=== PATIENT | male | born 1955 | race Asian ===

== ENCOUNTER → 2019-07-22 08:54 | Outpatient (CLI) | payer OTHER, SELFPAY ==
[2019-07-18 15:37] VITALS: BMI 23.6
[2019-07-22 10:07] LABS: Microalbumin,Random Urine 16.8 mg/L (NO RANGE EST.); Microalbumin:Creatinine Ratio 9.1 mg/g CRE (<30 mg/g CRE)
[2019-07-22 11:04] LABS: ALB/GLOB Ratio 0.9 RATIO (0.9-2.4); AST(SGOT) 28 U/L (15-37); Alanine Aminotransfer ALT/SGPT 50 U/L (16-61); Albumin, Serum 3.9 g/dL (3.2-5.0); Alkaline Phosphatase 72 U/L (45-117); Anion Gap 4 (5-15); BUN 13 mg/dL (7-18); BUN/Creat Ratio 11.5 RATIO (10-20); Calcium,Total 9.1 mg/dL (8.5-10.1); Chloride 109 mmol/L (98-107); Cholesterol 221 mg/dL (200); Creatinine, Serum 1.13 mg/dL (0.70-1.30); EST Glomerular Filtration Rate 69 mL/min (>60); Est Glom Filt Rate - Afr Amer 84 mL/min (>60); Globulin 4.3 g/dL (2.2-4.2); Glucose 115 mg/dL (74-106); High Density Lipoprotein 59 mg/dL; Potassium 4.1 mmol/L (3.5-5.1); Protein, Total 8.2 g/dL (6.4-8.2); Sodium Level 139 mmol/L (136-145); Triglycerides 113 mg/dL; Very Low Density Lipoprotein 23 mg/dL (5-40)
== END ==
PROVIDERS: PCP Family Medicine; Referring Provider Family Medicine; Visit Provider Family Medicine
DX: E11.9 Type 2 diabetes mellitus without complications (principal)
CPT/HCPCS: 36415; 80053; 80061; 82043; 82570

== ENCOUNTER → 2020-07-24 15:19 | Outpatient (CLI) | payer OTHER, SELFPAY ==
[2020-07-24 16:54] LABS: ALB/GLOB Ratio 0.9 RATIO (0.9-2.4); AST(SGOT) 30 U/L (15-37); Alanine Aminotransfer ALT/SGPT 48 U/L (16-61); Albumin, Serum 3.8 g/dL (3.2-5.0); Alkaline Phosphatase 93 U/L (45-117); Anion Gap 4 (5-15); BUN 21 mg/dL (7-18); BUN/Creat Ratio 16.4 RATIO (10-20); Calcium,Total 8.9 mg/dL (8.5-10.1); Chloride 104 mmol/L (98-107); Cholesterol 227 mg/dL (200); Creatinine, Serum 1.28 mg/dL (0.70-1.30); EST Glomerular Filtration Rate 60 mL/min (>60); Est Glom Filt Rate - Afr Amer 72 mL/min (>60); Globulin 4.1 g/dL (2.2-4.2); Glucose 203 mg/dL (74-106); High Density Lipoprotein 50 mg/dL; Potassium 4.3 mmol/L (3.5-5.1); Protein, Total 7.9 g/dL (6.4-8.2); Sodium Level 138 mmol/L (136-145); Triglycerides 396 mg/dL; Very Low Density Lipoprotein 79 mg/dL (5-40)
[2020-07-24 16:58] LABS: Hemoglobin A1c 7.3 % (3.8-5.6)
== END ==
PROVIDERS: PCP Family Medicine; Referring Provider Family Medicine; Visit Provider Family Medicine
DX: I10 Essential (primary) hypertension (principal); E11.9 Type 2 diabetes mellitus without complications
CPT/HCPCS: 36415; 80053; 80061; 83036

== ENCOUNTER → 2020-10-30 14:08 | Outpatient (CLI) | payer OTHER, SELFPAY ==
[2020-10-30 13:49] VITALS: BMI 23.6
[2020-10-30 15:16] LABS: Hemoglobin A1c 6.9 % (3.8-5.6)
== END ==
PROVIDERS: PCP Family Medicine; Referring Provider Family Medicine; Visit Provider Family Medicine
DX: E11.9 Type 2 diabetes mellitus without complications (principal)
CPT/HCPCS: 36415; 83036

== ENCOUNTER → 2021-10-15 | Outpatient (CLI) | payer OTHER, SELFPAY ==
[2021-10-15 15:36] LABS: AST(SGOT) 24 U/L (15-37); Alanine Aminotransfer ALT/SGPT 45 U/L (16-61); Albumin, Serum 3.9 g/dL (3.2-5.0); Alkaline Phosphatase 72 U/L (45-117); Anion Gap 8 (5-15); BUN 17 mg/dL (7-18); Calcium,Total 9.2 mg/dL (8.5-10.1); Chloride 101 mmol/L (98-107); Creatinine, Serum 1.55 mg/dL (0.70-1.30); EST Glomerular Filtration Rate 48 mL/min (>60); Est Glom Filt Rate - Afr Amer 58 mL/min (>60); Glucose 211 mg/dL (74-106); Protein, Total 7.9 g/dL (6.4-8.2); Sodium Level 134 mmol/L (136-145)
[2021-10-15 16:06] LABS: Microalbumin,Random Urine 24.4 mg/L (NO RANGE EST.); Microalbumin:Creatinine Ratio 9.1 mg/g CRE (<30 mg/g CRE)
== END | disposition home or self-care (01) ==
LOC: BIMLAB 14:00
PROVIDERS: PCP Family Medicine; Referring Provider Family Medicine; Visit Provider Family Medicine
DX: E11.9 Type 2 diabetes mellitus without complications (principal)
CPT/HCPCS: 36415; 80053; 82043; 82570

== ENCOUNTER → 2021-11-28 | Outpatient (CLI) | payer MEDICARE, SELFPAY ==
[2021-11-28 12:45] LABS: BUN 16 mg/dL (7-18); BUN/Creat Ratio 13.7 RATIO (10-20); Calcium,Total 9.4 mg/dL (8.5-10.1); Chloride 103 mmol/L (98-107); Creatinine, Serum 1.17 mg/dL (0.70-1.30); EST Glomerular Filtration Rate 66 mL/min (>60); Est Glom Filt Rate - Afr Amer 80 mL/min (>60); Glucose 144 mg/dL (74-106); Phosphorus 3.1 mg/dL (2.5-4.9); Potassium 4.4 mmol/L (3.5-5.1); Sodium Level 137 mmol/L (136-145)
== END | disposition home or self-care (01) ==
PROVIDERS: PCP Family Medicine; Referring Provider Family Medicine; Visit Provider Family Medicine
DX: I10 Essential (primary) hypertension (principal); E11.9 Type 2 diabetes mellitus without complications
CPT/HCPCS: 36415; 80069

== ENCOUNTER → 2023-02-02 | Outpatient (CLI) | payer MEDICARE, SELFPAY ==
[2023-02-02 12:54] LABS: ALB/GLOB Ratio 1.1 RATIO (0.9-2.4); AST(SGOT) 34 U/L (15-37); Alanine Aminotransfer ALT/SGPT 58 U/L (16-61); Albumin, Serum 4.1 g/dL (3.2-5.0); Alkaline Phosphatase 77 U/L (45-117); Anion Gap 8 (5-15); BUN 17 mg/dL (7-18); BUN/Creat Ratio 15.5 RATIO (10-20); Calcium,Total 9.5 mg/dL (8.5-10.1); Chloride 104 mmol/L (98-107); Cholesterol 212 mg/dL (200); EST Glomerular Filtration Rate 71 mL/min (>60); Est Glom Filt Rate - Afr Amer 86 mL/min (>60); Globulin 3.7 g/dL (2.2-4.2); Glucose 118 mg/dL (74-106); High Density Lipoprotein 48 mg/dL; Potassium 4.6 mmol/L (3.5-5.1); Protein, Total 7.8 g/dL (6.4-8.2); Sodium Level 138 mmol/L (136-145); Triglycerides 302 mg/dL; Very Low Density Lipoprotein 60 mg/dL (5-40)
== END | disposition home or self-care (01) ==
LOC: BIMLAB 11:16
PROVIDERS: PCP Family Medicine; Referring Provider Family Medicine; Visit Provider Family Medicine
DX: E11.9 Type 2 diabetes mellitus without complications (principal)
CPT/HCPCS: 36415; 80053; 80061

== ENCOUNTER → 2024-02-22 | Outpatient (CLI) | payer MEDICARE, SELFPAY ==
[2024-02-22 16:48] LABS: ALB/GLOB Ratio 0.9 RATIO (0.9-2.4); AST(SGOT) 27 U/L (15-37); Alanine Aminotransfer ALT/SGPT 52 U/L (16-61); Albumin, Serum 3.8 g/dL (3.2-5.0); Alkaline Phosphatase 86 U/L (45-117); Anion Gap 12 (5-15); BUN 25 mg/dL (7-18); BUN/Creat Ratio 19.2 RATIO (10-20); Calcium,Total 9.2 mg/dL (8.5-10.1); Chloride 105 mmol/L (98-107); Cholesterol 168 mg/dL (200); EST Glomerular Filtration Rate 58 mL/min (>60); Est Glom Filt Rate - Afr Amer 70 mL/min (>60); Globulin 4.1 g/dL (2.2-4.2); Glucose 147 mg/dL (74-106); High Density Lipoprotein 50 mg/dL; Potassium 3.7 mmol/L (3.5-5.1); Protein, Total 7.9 g/dL (6.4-8.2); Sodium Level 140 mmol/L (136-145); Triglycerides 282 mg/dL; Very Low Density Lipoprotein 56 mg/dL (5-40)
== END | disposition home or self-care (01) ==
LOC: BIMLAB 15:45
PROVIDERS: PCP Family Medicine; Visit Provider Family Medicine
DX: I10 Essential (primary) hypertension (principal); E11.9 Type 2 diabetes mellitus without complications
CPT/HCPCS: 36415; 80053; 80061

== ENCOUNTER → 2025-01-18 | Outpatient (CLI) | payer MEDICARE, SELFPAY ==
[2025-01-18 13:52] LABS: Hematocrit 44.0 % (40-54); Hemoglobin 14.9 g/dL (13.0-16.5); Immature Granulocytes Count 0.020 X10^3/uL (0.0-0.0); Mean Corp Hgb Conc 33.9 g/dL (32-36); Mean Corpuscular Volume 90.3 fL (80-94); Mean Platelet Vol. 10.6 fl (6.2-12.0); NRBC Flagged by Analyzer 0 % (0-5); Platelet Count 184 K/mm3 (150-450); RBC Distribution Width CV 12.6 % (11.6-14.6); RBC Distribution Width SD 41.7 fl (35.1-43.9); Red Blood Count 4.87 M/mm3 (4.6-6.2); White Blood Count 6.1 K/mm3 (4.4-11.0)
[2025-01-18 15:14] LABS: AST(SGOT) 30 U/L (<=37); Alanine Aminotransfer ALT/SGPT 37 U/L (<=46); Albumin, Serum 4.5 g/dL (3.4-4.8); Alkaline Phosphatase 76 U/L (40-129); Anion Gap 16 (5-15); BUN 15 mg/dL (4-19); BUN/Creat Ratio 13.8 RATIO (10-20); Calcium,Total 9.7 mg/dL (7.6-11.0); Carbon Dioxide 23.5 mmol/L (21.0-32.0); Chloride 97 mmol/L (98-108); Cholesterol 150 mg/dL (<=200); Globulin 3.5 g/dL (2.2-4.2); Glucose 217 mg/dL (70-99); Low Density Lipoprotein Calc. 68 mg/dL; Potassium 4.1 mmol/L (3.3-5.1); Triglycerides 178 mg/dL; Very Low Density Lipoprotein 36 mg/dL (5-40); cholesterol:hdl ratio screen 3.21
== END | disposition home or self-care (01) ==
LOC: LAB 13:32
PROVIDERS: PCP Family Medicine; Referring Provider Physician Assistant; Visit Provider Physician Assistant
DX: I10 Essential (primary) hypertension (principal); E11.9 Type 2 diabetes mellitus without complications
CPT/HCPCS: 36415; 80053; 80061; 84443; 85025

== ENCOUNTER → 2025-01-23 | Outpatient (CLI) | payer MEDICARE, SELFPAY ==
--- NOTE | 2025-01-23 08:52 | EKG12_ITS ---
Test Reason : DYSPNEA Blood Pressure : */* mmHG Vent. Rate : 83 BPM Atrial Rate : 83 BPM P-R Int : 148 ms QRS Dur : 82 ms QT Int : 332 ms P-R-T Axes : 69 78 89 degrees QTcB Int : 390 ms Normal sinus rhythm RSR' or QR pattern in V1 suggests right ventricular conduction delay Nonspecific T wave abnormality Abnormal ECG Confirmed by JOLENE BULLOCK, UZIEL ([id number]), editor producer CHARLOTTE FISH ([id number]) on 01/24/2025 9:33:14 AM Referred By: Monroe Ta Confirmed By: UZIEL FERNÁNDEZ MD
== END | disposition home or self-care (01) ==
PROVIDERS: PCP Family Medicine; Referring Provider Physician Assistant; Visit Provider Physician Assistant
DX: R06.09 Other forms of dyspnea (principal); R40.20 Unspecified coma
CPT/HCPCS: 93005

== ENCOUNTER → 2025-02-14 | Outpatient (CLI) | payer MEDICARE, SELFPAY ==
--- OUTSIDE RECORDS SUMMARY | 2025-02-14 06:43 | XMS RPT_ITS | CCD ---
Author Organization [facility] Care Team Providers Care Make Up Man Name Role Phone Dr. Laci Billingsley Primary Care Provider [phone] Dr. Laci Billingsley Attending Provider [phone] Dr. Laci Billingsley Referring Provider [phone] LACI BILLINGSLEY DO Primary Care Physician PRATIBHA BULLOCK, DR BOND Attending Unavailabl e LACI BILLINGSLEY DO Primary Care Unavailable Dr. Laci Billingsley DO Primary Care Provider [phone] Dr. Laci Billingsley DO Attending Provider [phone] Dr. Laci Billingsley DO Referring Provider [phone] Reuben Duong Attending Provider Dr. Laci Billingsley DO Primary Care Provider Dr. Laci Billingsley DO Referring Provider [phone] Dr. Laci Billingsley DO Attending Provider [phone] Monroe Jennings Attending Provider [phone] Monroe Jennings Referring Provider [phone] Laci Billingsley R Primary Care Unavailable Monroe Jennings Referring Unavailable Monroe Jennings Attending Unavailable Laci Billingsley R Primary Care Unavailable Monroe Jennings Referring Unavailable Cely NAILS, Monroe Attending Unavailable Brown, Laci R Primary Care Unavailable Reuben Duong Attending Unavailable BrownLaci R Referring Unavailable Brown, Laci R Primary Care Unavailable BrownLaci R Attending Unavailable Laci Billingsley R Referring Unavailable Brown, Laci R Primary Care Unavailable Monroe Jennings Attending Unavailable Larry Billingsleylas R Referring Unavailable Brown, Laci R Primary Care Unavailable Brown, Laci R Attending Unavailable Brown, Laci R Referring Unavailable Brown, Laci R Primary Care Unavailable Brown, Laci R Attending Unavailable Brown, Laci R Primary Care Unavailable Monroe Jennings Referring Unavailable Monroe Jennings Attending Unavailable Brown, Laci R Primary Care Unavailable Brown, Laci R Attending Unavailable Brown, Laci R Referring Unavailable Monroe Jennings Referring Unavailable Alfredo Jim Attending Unavailable Brown, Laci R Primary Care Unavailable Brown, Laci R Primary Care Unavailable Brown, Laci R Attending Unavailable Brown, Laci R Referring Unavailable Medications Current Medications Medication Drug Class(es) Dates Sig (Normalized) Sig (Original) aspirin 81 mg oral tablet (3 sources) Platelet Aggregation Inhibitor, Nonsteroidal Anti-inflammatory Drug Start: 01-18-2025 take 1 tablet by mouth once daily Aspirin 81 mg tablet Active 81 mg PO daily 100 January 18, 2025 12:00am atorvastatin 10 mg oral tablet (12 sources) HMG-CoA Reductase Inhibitor Start: 02-03-2023 End: 02-22-2024 take 1 tablet by mouth once daily Atorvastatin (Lipitor) 10 mg tablet Active 10 mg PO DAILY 90 February 22, 2024 3:39pm Blood-Glucose Meter (Accu-Chek Guide Glucose Meter) misc (10 sources) Start: 07-13-2023 Blood-Glucose Meter (Accu-Chek Guide Glucose Meter) misc Active 0 .Route 1 0 July 13, 2023 12:41pm As directed to check BG 1-2 times daily for DMII Start: 07-13-2023 Blood-Glucose Meter (Accu-Chek Guide Glucose Meter) misc Active 0 .Route 1 July 13, 2023 12:41pm As directed to check BG 1-2 times daily for DMII Start: 07-13-2023 End: 07-13-2023 Blood-Glucose Meter (Accu-Ch ek Guide Glucose Meter) misc Discontinued 0 .Route 1 0 July 13, 2023 1:00am July 13, 2023 12:41pm As directed to check BG 1-2 times daily for DMII Start: 07-13-2023 End: 07-13-2023 Blood-Glucose Meter (Accu-Ch ek Guide Glucose Meter) misc Discontinued 0 .Route 1 July 13, 2023 1:00am July 13, 2023 12:41pm As directed to check BG 1-2 times daily for DMII Mzwndfme-Ypq-Gfodo-Vit K-Lyc op (One-A-Day Men's Multivitamin) 400-20-300 mcg tablet (9 sources) Start: 11-21-2024 Tltqxqcc-Tlb-Z olic-Vit K-Lycop (One-A-Day Men's Multivitamin) 400-20-300 mcg tablet Active {tbl} PO daily November 21, 2024 9:57am Start: 08-22-2024 End: 11-21-2024 Fhxexqle-Cer-Evuvz-Vit K-Lyc op (One-A-Day Men's Multivitamin) 400-20-300 mcg tablet Discontinued {tbl} PO August 22, 2024 12:00am November 21, 2024 9:57am Start: 08-22-2024 Avwciisw-Kdk-H olic-Vit K-Lycop (One-A-Day Men's Multivitamin) 400-20-300 mcg tablet Active {tbl} PO August 22, 2024 12:00am Completed/Discontinued Medications Medication Drug Class(es) Dates Sig (Normalized) Sig (Original) Blood-Glucose Meter (Blood Glucose Monitoring) kit (5 sources) Start: 07-13-2023 End: 07-13-2023 Blood-Glucose Meter (Blood Glucose Monitoring) kit Discontinued 0 .Route 1 0 July 13, 2023 1:00am July 13, 2023 11:37am As directed Start: 07-13-2023 End: 07-13-2023 Blood-Glucose Meter (Blood G lucose Monitoring) kit Discontinued 0 .Route 1 July 13, 2023 1:00am July 13, 2023 11:37am As directed cephalexin 500 mg oral capsule (5 sources) Cephalosporin Antibacterial Start: 10-19-2024 End: 10-29-2024 take 1 capsule by mouth every twelve hours Cephalexin 500 mg capsule Discontinued 500 mg PO Q12H 20 10 0 October 19, 2024 12:00am October 28, 2024 12:00am October 29, 2024 12:06am empagliflozin 25 mg oral tablet (16 sources) Sodium-Glucose Cotransporter 2 Inhibitor Start: 07-21-2023 End: 11-21-2024 take 1 tablet by mouth once daily Empagliflozin (Jardiance) 25 mg tablet Discontinued 25 mg PO DAILY 30 3 March 16, 2024 9:58am November 21, 2024 10:04am Flash Glucose Scanning [place] (Freestyle Melisa 2 [place]) misc (5 sources) Start: 07-07-2023 End: 07-13-2023 Flash Glucose Scanning [place] (Freestyle Melisa 2 [place]) misc Discontinued 0 .Route 1 0 July 07, 2023 1:00am July 13, 2023 9:18am As directed Start: 07-07-2023 End: 07-13-2023 Flash Glucose Scanning Reade r (Freestyle Melisa 2 [place]) misc Discontinued 0 .Route 1 July 07, 2023 1:00am July 13, 2023 9:18am As directed lisinopril 20 mg oral tablet (20 sources) Angiotensin Converting Enzyme Inhibitor Start: 10-30-2020 End: 01-18-2025 take 1 tablet by mouth once daily Lisinopril 20 mg tablet Discontinued 20 mg PO DAILY February 10, 2023 11:27am January 18, 2025 12:37pm Start: 10-30-2020 End: 10-30-2020 take 10 mg by mouth once daily Lisinopril 20 mg tablet Discontinued 10 mg PO DAILY October 30, 2020 2:01pm October 30, 2020 2:10pm Start: 10-30-2020 End: 10-30-2020 take 10 mg by mouth once daily Lisinopril Discontinued 10 MG PO DAILY 90 October 30, 2020 2:01pm October 30, 2020 2:10pm Start: 07-18-2019 End: 10-30-2020 take 1 tablet by mouth once daily Lisinopril 10 mg tablet Discontinued 10 mg PO DAILY July 24, 2020 4:12pm October 30, 2020 2:03pm Start: 03-17-2018 End: 07-18-2019 take 1 tablet by mouth once daily Lisinopril 20 mg tablet Discontinued 20 mg PO DAILY March 17, 2018 4:48pm July 18, 2019 4:19pm metFORMIN hydrochloride 500 mg oral tablet (20 sources) Biguanide Start: 11-21-2024 End: 01-18-2025 take 1 tablet by mouth twice daily Metformin 500 mg tablet Discontinued 500 mg PO TWICE A DAY November 21, 2024 9:56am January 18, 2025 12:38pm Start: 05-24-2024 End: 11-21-2024 Metformin 500 mg tablet Acti ve 500 mg PO .COMPLEX 270 1 November 21, 2024 12:00am 500 mg orally; two in the morning one at night Start: 02-02-2020 End: 11-21-2024 take 1 tablet by mouth twice daily Metformin 500 mg tablet extended release 24hr Discontinued 500 mg PO TWICE A DAY 180 1 March 28, 2024 10:57am November 21, 2024 9:57am Start: 02-24-2018 End: 02-02-2020 take 1 tablet by mouth once daily in the evening Metformin 500 mg tablet extended release 24hr Discontinued 500 mg PO EVERY EVENING 90 0 June 20, 2019 11:12am July 18, 2019 4:41pm pravastatin sodium 10 mg oral tablet (16 sources) HMG-CoA Reductase Inhibitor Start: 03-17-2018 End: 07-18-2019 take 1 tablet by mouth once daily Pravastatin 10 mg tablet Discontinued 10 mg PO DAILY 90 March 17, 2018 4:48pm July 18, 2019 4:19pm sildenafil 50 mg oral tablet (11 sources) Phosphodiesterase 5 Inhibitor Start: 10-28-2022 End: 11-21-2024 Sildenafil (Viagra) 50 mg tablet Discontinued 50 mg PO DAILY as needed for sexual activity 7 3 February 22, 2024 3:39pm November 21, 2024 9:57am administer 30 minutes to 4 hours before activity Problems Problem Classification Problem Date Documented Da te Episodic/Chronic Cataract (8 sources) Cataract; Translations: [Unspecified cataract] 07-18-2019 Chronic Coma; stupor; and brain damage (6 sources) Loss of consciousness; Translations: [Unspecified coma] Onset: 01-18-2025 01-18-2025 Episodic Diabetes mellitus without complication (19 sources) Diabetes mellitus; Translations: [Type 2 diabetes mellitus without complications] Onset: 01-18-2025 Chronic Essential hypertension (20 sources) Hypertensive disorder; Translations: [Essential (primary) hypertension] Onset: 01-23-2025 Chronic Comment on above: Blood pressure is un denice excellent control. Currently well contr olled Osteoarthritis (8 sources) Arthritis; Translations: [Unspecified osteoarthritis, unspecified site] 03-17-2018 Chronic Other connective tissue disease (6 sources) Biceps tendinitis; Translations: [Bicipital tendinitis, left shoulder] 07-22-2022 Episodic Other lower respiratory disease (6 sources) Dyspnea on exertion; Translations: [Other forms of dyspnea] 01-18-2025 Episodic Other lower respiratory disease (2 sources) Other forms of dyspnea; Translations: [Other forms of dyspnea] Onset: 01-31-2025 Episodic Other male genital disorders (15 sources) Male erectile dysfunction, unspecified; Translations: [Erectile dysfunction] Onset: 02-22-2024 02-02-2023 Chronic Other screening for suspected conditions (not mental disorders or infectious disease) (9 sources) Screening for malignant neoplasm of colon done; Translations: [Encounter for screening for malignant neoplasm of colon] Onset: 09-27-2023 Episodic Residual codes; unclassified (3 sources) Impaired exercise tolerance; Translations: [Other general symptoms and signs] 01-18-2025 Episodic Residual codes; unclassified (1 source) Other general symptoms and signs; Translations: [Other general symptoms and signs] Onset: 01-18-2025 Episodic Superficial injury; contusion (8 sources) Abrasion, left lower leg, initial encounter; Translations: [Abrasion of left lower leg] 10-20-2024 Episodic Results Test Name Value Interpretation Reference Range Facility Electrocardiogram reportOrde red By: Alfredo Jim on 01-24-2025 EKG study [facility] [address] [place] [address] 12 Lead EKG 01/23/25 0856 MR#: [id number] Acct: [id number] Name: LIZA BUSCH Rep #:[id number] : 1955 69 From: Alfredo Jim MD Attending Dr: JESU Ramachandran Stat us: REG CLI Ordering Dr: Monroe Ta Date: 01/23/25 Location: PSN Sex: M A Admitted: Test Reason : DYSPNEA Blood Pressure : */* mmHG Vent. Rate : 83 BPM Atrial Rate : 83 BPM P-R Int : 148 ms QRS Dur : 82 ms QT Int : 332 ms P-R-T Axes : 69 78 89 degrees QTcB Int : 390 ms Normal sinus rhythm RSR' or QR pattern in V1 suggests right ventricular conduction delay Nonspecific T wave abnormality Abnormal ECG Confirmed by ALFREDO JIM MD ([id number]), video news editor CHARLOTTE FISH ([id number]) on 01/24/2025 9:33:14 AM Referred By: Monroe Ta Confirmed By: ALFREDO JIM MD 01/24/2533 Date _ Alfredo Jim MD CC: Dr. Laci Billingsley DO; JESU Ramachandran ~ Signed [facility] Other 12 Lead EKGon 01-23-2025 12 Lead EKG [facility] [address] [place] [address] 12 Lead EKG 01/23/25 0856 MR#: [id number] Acct: [id number] Name: LIZA BUSCH Rep #: [id number] : 1955 69 From: Alfredo Jim MD Attending Dr: JESU Ramachandran Status: REG CLI Ordering Dr: Monroe Ta Date: 01/23/25 Location: PSN Sex: M A Admitted: Test Reason : DYSPNEA Blood Pressure : */* mmHG Vent. Rate : 83 BPM Atrial Rate : 83 BPM P-R Int : 148 ms QRS Dur : 82 ms QT Int : 332 ms P-R-T Axes : 69 78 89 degrees QTcB Int : 390 ms Normal sinus rhythm RSR' or QR pattern in V1 suggests right ventricular conduction delay Nonspecific T wave abnormality Abnormal ECG Confirmed by ALFREDO JIM MD ([id number]), video news editor CHARLOTTE FISH ([id number]) on 01/24/2025 9:33:14 AM Referred By: Monroe Ta Confirmed By: ALFREDO JIM MD 01/24/2533 Date Alfredo Jim MD CC: Dr. Laci Billingsley DO; JESU Ramachandran Signed Normal [facility] Absolute lymphocyte countOrd ered By: Monroe Ta on 01-18-2025 Lymphocytes Auto (Unsp spec) [#/Vol] 1.73 10*3/uL 0.83-4.51 [facility] Absolute neutrophil countOrd ered By: Monroe Ta on 01-18-2025 Neutrophils (Bld) [#/Vol] 3.5 10*3/uL 2.0-7.7 [facility] Anion gap in Serum or Plasma Ordered By: Monroe Ta on 01-18-2025 Anion gap [Moles/Vol] 16 mmol/L High 5-15 [facility] Automated lymphocyte count a s percentage of total leukocytesOrdered By: Monroe Ta on 01-18-2025 Lymphocytes/100 WBC Auto (Unsp spec) 28.4 % 19- [facility] BUN/creatinine ratioOrdered By: Monroe Ta on 01-18-2025 Urea nitrogen/Creatinine [Mass ratio] 13.8 mg/mg 10-20 [facility] Basophil percentageOrdered B y: Monroe Ta on 01-18-2025 Basophils/100 WBC (Bld) 1.0 % 0-1 [facility] Bilirubin, totalOrdered By: Monroe Ta on 01-18-2025 Bilirubin [Mass/Vol] 0.42 mg/dL 0.00-1.30 [facility] CBC W/Diff, Automatedon 01-05 Absolute Lymph 1.73 X10 3/uL Normal 0.83-4.51 [facility] Comment on above: Performed By: #### L 501.9520, L100.0100, L500.4100, L500.4050 #### [facility] [address] [place], [address] Absolute Neut 3.5 X10 3/uL Normal 2.0-7.7 [facility] Comment on above: Performed By: #### L 501.9520, L100.0100, L500.4100, L500.4050 #### [facility] [address] [place], [address] Basophils/100 WBC (Bld) 1.0 % Normal 0-1 [facility] Comment on above: Performed By: #### L 501.9520, L100.0100, L500.4100, L500.4050 #### [facility] [address] [place], [address] Eosinophils/100 WBC (Bld) 2.1 % Normal 0-5 [facility] Comment on above: Performed By: #### L 501.9520, L100.0100, L500.4100, L500.4050 #### [facility] [address] [place], [address] Erythrocyte distribution width (RBC) [Ratio] 12.6 % Normal 11.6-14.6 [facility] Comment on above: Performed By: #### L 501.9520, L100.0100, L500.4100, L500.4050 #### [facility] [address] [place], [address] Hematocrit (Bld) [Volume fraction] 44.0 % Normal 40-54 [facility] Comment on above: Performed By: #### L 501.9520, L100.0100, L500.4100, L500.4050 #### [facility] [address] [place], [address] Hemoglobin (Bld) [Mass/Vol] 14.9 g/dL Normal 13.0-16.5 [facility] Comment on above: Performed By: #### L 501.9520, L100.0100, L500.4100, L500.4050 #### [facility] [address] [place], [address] IG% 0.300 Normal 0.0-0.9 [facility] Comment on above: Result Comment: IG% - Immature Granulocytes (promyelocytes, myelocytes and metamyelocytes) > 1% indicates that a LEFT SHIFT is Present. Performed By: #### L 501.9520, L100.0100, L500.4100, L500.4050 #### [facility] [address] [place], [address] Lymphocytes/100 WBC (Bld) 28.4 % Normal 19-41 [facility] Comment on above: Performed By: #### L 501.9520, L100.0100, L500.4100, L500.4050 #### [facility] [address] [place], [address] MCH (RBC) [Entitic mass] 30.6 pg Normal 27.0-32.0 [facility] Comment on above: Performed By: #### L 501.9520, L100.0100, L500.4100, L500.4050 #### [facility] [address] [place], [address] MCHC (RBC) [Mass/Vol] 33.9 g/dL Normal 32-36 [facility] Comment on above: Performed By: #### L 501.9520, L100.0100, L500.4100, L500.4050 #### [facility] [address] [place], [address] MCV (RBC) [Entitic vol] 90.3 fL Normal 80-94 [facility] Comment on above: Performed By: #### L 501.9520, L100.0100, L500.4100, L500.4050 #### [facility] [address] [place], [address] Monocytes/100 WBC (Bld) 10.2 % High 0-10 [facility] Comment on above: Performed By: #### L 501.9520, L100.0100, L500.4100, L500.4050 #### [facility] [address] [place], [address] Neutrophils/100 WBC (Bld) 58.0 % Normal 47-70 [facility] Comment on above: Performed By: #### L 501.9520, L100.0100, L500.4100, L500.4050 #### [facility] [address] [place], [address] Nucleated RBC (Bld) [#/Vol] 0 10*3/uL Normal 0-5 [facility] Comment on above: Performed By: #### L 501.9520, L100.0100, L500.4100, L500.4050 #### [facility] [address] [place], [address] Platelet mean volume (Bld) [Entitic vol] 10.6 fL Normal 6.2-12.0 [facility] Comment on above: Performed By: #### L 501.9520, L100.0100, L500.4100, L500.4050 #### [facility] [address] [place], [address] Platelets (Bld) [#/Vol] 184 10*3/uL Normal 150-450 [facility] Comment on above: Performed By: #### L 501.9520, L100.0100, L500.4100, L500.4050 #### [facility] [address] [place], [address] RBC (Bld) [#/Vol] 4.87 10*6/uL Normal 4.6-6.2 [facility] Comment on above: Performed By: #### L 501.9520, L100.0100, L500.4100, L500.4050 #### [facility] [address] [place], [address] RDW SD 41.7 fl Normal 35.1-43.9 [facility] Comment on above: Performed By: #### L 501.9520, L100.0100, L500.4100, L500.4050 #### [facility] [address] [place], [address] WBC (Bld) [#/Vol] 6.1 10*3/uL Normal 4.4-11.0 [facility] Comment on above: Performed By: #### L 501.9520, L100.0100, L500.4100, L500.4050 #### [facility] [address], [address] Calculated very low density lipoprotein (VLDL) cholesterol measurementOrdered By: Monroe Ta on 01-18-2025 Calculated very low density lipoprotein (VLDL) cholesterol measurement 36 mg/dL 5-40 [facility] Carbon dioxide, total [Moles /volume] in Central venous bloodOrdered By: Monroe Ta on 01-18-2025 CO2 [Moles/Vol] 23.5 mmol/L 21.0-32.0 [facility] Chloride assayOrdered By: Eitan Ta on 01-18-2025 Chloride [Moles/Vol] 97 mmol/L Low 98-108 [facility] Comprehensive Metabolic Prof ilon 01-18-2025 Albumin [Mass/Vol] 4.5 g/dL Normal 3.4-4.8 [facility] Comment on above: Performed By: #### L 501.9520, L100.0100, L500.4100, L500.4050 #### [facility] [address], [address] Albumin/Globulin [Mass ratio] 1.3 {ratio} Normal 0.9-2.4 [facility] Comment on above: Performed By: #### L 501.9520, L100.0100, L500.4100, L500.4050 #### [facility] [address] [place], [address] ALK PHOS 76 U/L Normal 40-129 [facility] Comment on above: Performed By: #### L 501.9520, L100.0100, L500.4100, L500.4050 #### [facility] [address] [place], [address] ALT [Catalytic activity/Vol] 37 U/L Normal <=46 [facility] Comment on above: Performed By: #### L 501.9520, L100.0100, L500.4100, L500.4050 #### [facility] [address] [place], [address] AST [Catalytic activity/Vol] 30 U/L Normal <=37 [facility] Comment on above: Performed By: #### L 501.9520, L100.0100, L500.4100, L500.4050 #### [facility] [address] [place], [address] Bilirubin [Mass/Vol] 0.42 mg/dL Normal 0.00-1.30 [facility] Comment on above: Performed By: #### L 501.9520, L100.0100, L500.4100, L500.4050 #### [facility] [address] [place], [address] BUN/CRE 13.8 RATIO Normal 10-20 [facility] Comment on above: Performed By: #### L 501.9520, L100.0100, L500.4100, L500.4050 #### [facility] [address] [place], [address] Calcium [Mass/Vol] 9.7 mg/dL Normal 7.6-11.0 [facility] Comment on above: Performed By: #### L 501.9520, L100.0100, L500.4100, L500.4050 #### [facility] [address] [place], [address] Chloride [Moles/Vol] 97 mmol/L Low 98-108 [facility] Comment on above: Performed By: #### L 501.9520, L100.0100, L500.4100, L500.4050 #### [facility] [address] [place], [address] CO2 [Moles/Vol] 23.5 mmol/L Normal 21.0-32.0 [facility] Comment on above: Performed By: #### L 501.9520, L100.0100, L500.4100, L500.4050 #### [facility] [address] [place], [address] Creatinine [Mass/Vol] 1.07 mg/dL Normal 0.70-1.20 [facility] Comment on above: Performed By: #### L 501.9520, L100.0100, L500.4100, L500.4050 #### [facility] [address] [place], [address] GAP 16 High 5-15 [facility] Comment on above: Performed By: #### L 501.9520, L100.0100, L500.4100, L500.4050 #### [facility] [address] [place], [address] GFR/1.73 sq M.predicted among non-blacks MDRD (S/P/Bld) [Vol rate/Area] 75 mL/min/{1.73_m2} Normal >60 [facility] Comment on above: Result Comment: mL/m in/1.73m2 CKD-EPI Creatinine Equation (2020) Performed By: #### L 501.9520, L100.0100, L500.4100, L500.4050 #### [facility] [address] [place], [address] Globulin (S) [Mass/Vol] 3.5 g/dL Normal 2.2-4.2 [facility] Comment on above: Performed By: #### L 501.9520, L100.0100, L500.4100, L500.4050 #### [facility] [address] [place], [address] Glucose [Mass/Vol] 217 mg/dL High 70-99 [facility] Comment on above: Performed By: #### L 501.9520, L100.0100, L500.4100, L500.4050 #### [facility] [address] [place], [address] Potassium [Moles/Vol] 4.1 mmol/L Normal 3.3-5.1 [facility] Comment on above: Performed By: #### L 501.9520, L100.0100, L500.4100, L500.4050 #### [facility] [address] [place], [address] Sodium [Moles/Vol] 136 mmol/L Normal 133-145 [facility] Comment on above: Performed By: #### L 501.9520, L100.0100, L500.4100, L500.4050 #### [facility] [address] [place], [address] T PROT 7.9 g/dL Normal 5.9-8.4 [facility] Comment on above: Performed By: #### L 501.9520, L100.0100, L500.4100, L500.4050 #### [facility] [address] [place], [address] Urea nitrogen [Mass/Vol] 15 mg/dL Normal 4-19 [facility] Comment on above: Performed By: #### L 501.9520, L100.0100, L500.4100, L500.4050 #### [facility] [address] [place], [address] Eosinophil percentageOrdered By: Monroe Ta on 01-18-2025 Eosinophils/100 WBC (Bld) 2.1 % 0-5 [facility] Erythrocyte distribution wid th ratioOrdered By: Monroe Ta on 01-18-2025 Erythrocyte distribution width (RBC) [Ratio] 12.6 % 11.6-14.6 [facility] Erythrocyte distribution wid th standard deviationOrdered By: Monroe Ta on 01-18-2025 Erythrocyte distribution width (RBC) [Ratio] 41.7 fl 35.1-43.9 [facility] Glomerular filtration rate ( GFR) estimation/1.73 sq m using serum, plasma, or whole bOrdered By: Monroe Ta on 01-18-2025 GFR/1.73 sq M.predicted among non-blacks MDRD (S/P/Bld) [Vol rate/Area] 75 mL/min/{1.73_m2} >60 [facility] Comment on above: mL/min/1.73m2 CKD-EP I Creatinine Equation (2020) Hematocrit Auto (Bld) [Volum e fraction]Ordered By: Monroe Ta on 01-18-2025 Hematocrit (Bld) [Volume fraction] 44.0 % 40-54 [facility] Hemoglobin measurementOrdere d By: Monroe Ta on 01-18-2025 Hemoglobin (Bld) [Mass/Vol] 14.9 g/dL 13.0-16.5 [facility] Immature granulocytes/100 WB C Auto (Bld)Ordered By: Monroe Ta on 01-18-2025 Immature granulocytes/100 WBC (Bld) 0.300 % 0.0-0.9 [facility] Comment on above: IG% - Immature Granu locytes (promyelocytes, myelocytes and metamyelocytes) > 1% indicates that a LEFT SHIFT is Present. Internal Medicine Office Vis melissa 01-18-2025 Internal Medicine Office Visit [facility] [address] [place] [address] [place] [address] OFFICE VISIT Date of Service: 01/18/25 MR#: [id number] Acct: [id number] Name: LIZA BUSCH Rep #: [id number] : 1955 Provider: JESU Ramachandran Age/Sex: 69/M Location: [facility] [place] Status: Signed Intake Vital Signs 11/21/24 09:57 01/18/25 12:40 Height 5 ft 10 in 5 ft 10 in Weight: 169 lb 168 lb BMI 24.2 24.0 BP 116/72 124/82 H Blood Pressure Location Lt brachial Lt brachial Position Sitting Sitting Respiration 14 18 Pulse 88 88 Pulse Source Monitor Monitor Temp 97.5 F L 97.7 F L Temp Source Temporal Temporal Pulse Oximetry (%) 99 98 Oxygen Delivery Method room air room air Intake Visit Reasons: Passed out 01/15, Diabetic, fell on hip (cont.) Office Manager Required: No Accompanied by: Daughter Is patient in pain?: No Allergies No Known Allergies Allergy (Verified 01/18/25 12:32) Medications ???Medication ???Instructions ???Recorded ???Confirmed ???Type blood-glucose meter (Accu-Chek #1 ea 07/13/23 01/18/25 Rx Guide Glucose Meter) lancets (Accu-Chek Softclix #100 ea 07/13/23 01/18/25 Rx Lancets) atorvastatin 10 mg tablet (Lipitor) 10 mg PO DAILY #90 tabs 4 01/18/25 Rx metformin 500 mg tablet 500 mg PO .COMPLEX #270 tabs 11/2101/18/25 Rx hmvgyvvl-pdmrdncx-oe lic acid 400 tab PO QDAY 11/21/24 01/18/25 Hist ory mcg-vit K 20 mcg-lycop 300 mcg tablet (One-A-Day Men's Multivitamin) aspirin 81 mg tablet 81 mg PO QDAY #100 tabs 01/18/25 0 01/18/25 Rx blood sugar diagnostic (Accu-Chek #100 ea 01/18/25 01/18/25 Rx Guide test strips) Have you fallen in the past year?: Yes (01/15/25-R hip feels better.) Nurse's Note: Pt has had loss of appetite for awhile, he fell on 01/15/25 he states he feels very fatigued, he passed out after going white on wednesday and his BG was 206 fasting. This mornings sugars are 166. He needs new test strips as they may be , he states bp's have been running good does not keep track, he has never brought in machine to be compared to in office. He has good readings in office and at home. Daughter wondering if more tests are needed due to her not coming in awhile to the appointments w/ him. [facility] Medical History (Updated 01/18/25 @ 21:12 by JESU Munguia) Hypertension Diabetes Arthritis Family History Mother Hypertension Social History Smoking Status: Former smoker alcohol intake: current alcohol intake frequency: a few times a month Alcohol type: beer substance use type: does not use what type of physical activity do you participate in: bicycling HPI HPI Details: LIZA BUSCH, is a 69 M who presents to the office today at the request of his family members. On Wednesday he was outside mowing and had just watered the plants when he started to feel light headed. He did sit down in a chair where he proceeded to have a syncopal episode falling to the ground. They said he was pale and sort of out of it and that it took him probably 15-20 minutes until he could really comprehend and was more himself. He states that since then he has felt ok at the same time still has some fatigue / feels tired. Daughter states that they think they see him get more winded than normal at the same time he feels like he is breathing easy and is not short of breath. Wehn asked though he states that since the episode maybe he would get a little winded like with stairs or walking. He had a little pain in the right hip that has pretty much resolve he states (maybe like 5% still there). He does periodically check his BP which they state always looks pretty good He does check his sugars and they states that normally it is in the mid 100s or lower. HE denies any chest pain / pressures, dizziness, shortness of breath, diaphoresis. No currently taking ASA minor ETOH intake ROS Const Constitutional: Positive for fatigue; No body ache, chills, excessive sweating, fever(s), frequent falls, headache(s), snoring, weakness, sleep problems or change in appetite Eyes Eyes: No blurry vision, change in vision, eye pain or Light sensitivity ENT ENT: Positive for other; No abnormal hearing, ear or mastoid pain, tinnitus, nasal congestion, headache(s), neck pain or sore throat Resp Respiratory: No cough, shortness of breath, snoring or wheezing Cardio Cardiology: No chest pain at rest, chest pain with exertion, excessive sweating, shortness of breath, dyspnea on exertion, lightheadedness, orthopnea or palpitations Gastro GI: No abdominal pain, change in bowel habits, constipation, cramping, diarrhea, nausea/dyspepsia or vomiting Genitourinary Male: No burning urinatio (more content not included)... Normal [facility] LDL calc ser/plasOrdered By: Monroe Ta on 01-18-2025 Cholesterol in LDL [Mass/Vol] 68 mg/dL [facility] Comment on above: Beackotiam=532-879 m g/dL & Higher Bgir=349 mg/dL or greaterFriedwald Equation for LDL-C Laboratory - Chemistry and C hemistry - challengeOrdered By: Monroe Ta on 01-18-2025 AST [Catalytic activity/Vol] 30 U/L <38 [facility] Lipid Profileon 01-18-2025 CHOL:HDL 3.21 Normal [facility] Comment on above: Performed By: #### L 501.9520, L100.0100, L500.4100, L500.4050 #### [facility] [address] [place], [place], [id number] Cholesterol [Mass/Vol] 150 mg/dL Normal <=200 [facility] Comment on above: Result Comment: Chol esterol level, Desirable <200 mg/dL Borderline high cholesterol 200-239 mg/dL High cholesterol >=240 mg/dL Recommendations of the NCEP Adult Treatment Panel for the following risk-cutoff thresholds for the [place] population. Performed By: #### L 501.9520, L100.0100, L500.4100, L500.4050 #### [facility] [address] [place], [place], [id number] Cholesterol in HDL [Mass/Vol] 47 mg/dL Normal [facility] Comment on above: Result Comment: Harika onal Cholesterol Education Program (NCEP) guidelines: <40 mg/dL: Low HDL-cholesterol (major risk factor for CHD) >= 60 mg/dL: High HDL-cholesterol (negative risk factor for CHD) HDL-cholesterol is affected by a number of factors, e.g. smoking, exercise, hormones, sex and age. Performed By: #### L 501.9520, L100.0100, L500.4100, L500.4050 #### [facility] [address] [place], [address] Cholesterol in LDL [Mass/Vol] 68 mg/dL Normal [facility] Comment on above: Result Comment: Bord xhssgr=062-484 mg/dL Higher Czgm=136 mg/dL or greater Friedwald Equation for LDL-C Performed By: #### L 501.9520, L100.0100, L500.4100, L500.4050 #### [facility] [address] [place], [address] Cholesterol in VLDL [Mass/Vol] 36 mg/dL Normal 5-40 [facility] Comment on above: Performed By: #### L 501.9520, L100.0100, L500.4100, L500.4050 #### [facility] [address] [place], [address] Triglyceride [Mass/Vol] 178 mg/dL Normal [facility] Comment on above: Result Comment: The drugs N-Acetylcysteine and Metamizole may falsely depress this assay. Normal range: <150 mg/dL Borderline High: 150-199 mg/dL High: 200-499 mg/dL Very High: >500 mg/dL Performed By: #### L 501.9520, L100.0100, L500.4100, L500.4050 #### [facility] [address] [place], [address] MCV (mean corpuscular volume ) determinationOrdered By: Monroe Ta on 01-18-2025 MCV (RBC) [Entitic vol] 90.3 fL 80-94 [facility] Mean corpuscular hemoglobin (MCH) determinationOrdered By: Monroe Ta on 01-18-2025 MCH (RBC) [Entitic mass] 30.6 pg 27.0-32.0 [facility] Mean corpuscular hemoglobin concentration (MCHC) determinationOrdered By: Monroe Ta on 01-18-2025 MCHC (RBC) [Mass/Vol] 33.9 g/dL 32-36 [facility] Mean platelet volume determi nationOrdered By: Monroe Ta on 01-18-2025 Platelet mean volume (Bld) [Entitic vol] 10.6 fL 6.2-12.0 [facility] Monocyte percentageOrdered B y: Monroe Ta on 01-18-2025 Monocytes/100 WBC (Bld) 10.2 % High 0-10 [facility] Neutrophil percentageOrdered By: Monroe Ta on 01-18-2025 Neutrophils/100 WBC (Bld) 58.0 % 47-70 [facility] Nucleated red blood cell per centageOrdered By: Monroe Ta on 01-18-2025 Nucleated RBC/100 WBC (Bld) [Ratio] 0 % 0-5 [facility] Platelet countOrdered By: Eitan ttmarlen Ta on 01-18-2025 Platelets (Bld) [#/Vol] 184 10*3/uL 150-450 [facility] Potassium measurement (mass/ volume)Ordered By: Monroe Ta on 01-18-2025 Potassium (Unsp spec) [Mass/Vol] 4.1 mmol/L 3.3-5.1 [facility] RBC Auto (Bld) [#/Vol]Ordere d By: Monroe Ta on 01-18-2025 RBC (Bld) [#/Vol] 4.87 10*6/uL 4.6-6.2 [facility] Screening total cholesterol/ high density lipoprotein (HDL) cholesterol ratioOrdered By: Monroe Ta on 01-18-2025 Cholesterol.total/Choles terol in HDL [Mass ratio] 3.21 {ratio} [facility] Serum creatinine measurement (mass/volume)Ordered By: Monroe Ta on 01-18-2025 Creatinine [Mass/Vol] 1.07 mg/dL 0.70-1.20 [facility] Serum globulin measurementOr dered By: Monroe Ta on 01-18-2025 Globulin (S) [Mass/Vol] 3.5 g/dL 2.2-4.2 [facility] Serum glucose measurement (m ass/volume)Ordered By: Monroe Ta on 01-18-2025 Glucose [Mass/Vol] 217 mg/dL High 70-99 [facility] Serum or plasma alanine conner otransferase (ALT) measurementOrdered By: Monroe Ta on 01-18-2025 ALT [Catalytic activity/Vol] 37 U/L <47 [facility] Serum or plasma albumin kristina urement (mass/volume)Ordered By: Monroe Ta on 01-18-2025 Albumin [Mass/Vol] 4.5 g/dL 3.4-4.8 [facility] Serum or plasma albumin/glob ulin mass ratioOrdered By: Monroe Ta on 01-18-2025 Albumin/Globulin [Mass ratio] 1.3 {ratio} 0.9-2.4 [facility] Serum or plasma alkaline paula sphatase measurementOrdered By: Monroe Ta on 01-18-2025 ALP [Catalytic activity/Vol] 76 U/L 40-129 [facility] Serum or plasma calcium kristina urement (mass/volume)Ordered By: Monroe Ta on 01-18-2025 Calcium [Mass/Vol] 9.7 mg/dL 7.6-11.0 [facility] Serum or plasma cholesterol in HDL measurement (mass/volume)Ordered By: Monroe Ta on 01-18-2025 Cholesterol in HDL [Mass/Vol] 47 mg/dL >40 [facility] Comment on above: National Cholesterol Education Program (NCEP) guidelines:<40 mg/dL: Low HDL-cholesterol (major risk factor for CHD)>= 60 mg/dL: High HDL-cholesterol (negative risk factor for CHD)HDL-cholesterol is affected by a number of factors, e.g. smoking, exercise, hormones, sex and age. Serum or plasma cholesterol measurement (mass/volume)Ordered By: Monroe Ta on 01-18-2025 Cholesterol [Mass/Vol] 150 mg/dL <201 [facility] Comment on above: Cholesterol level, D esirable <200 mg/dLBorderline high cholesterol 200-239 mg/dLHigh cholesterol >=240 mg/dLRecommendations of the NCEP Adult Treatment Panel for the following risk-cutoff thresholds for the [place] population. Serum or plasma urea nitroge n measurement (mass/volume)Ordered By: Monroe Ta on 01-18-2025 Urea nitrogen [Mass/Vol] 15 mg/dL 4-19 [facility] Sodium levelOrdered By: Jonathan Ta on 01-18-2025 Sodium [Moles/Vol] 136 mmol/L 133-145 [facility] TSH DL <= 0.005 mIU/L QnOrde red By: Monroe Ta on 01-18-2025 TSH Qn 1.120 uIU/mL 0.300-4.200 [facility] Thyroid Stim Hormone (TSH)on 01-18-2025 TSH 1.120 uIU/mL Normal 0.300-4.200 [facility] Comment on above: Performed By: #### L 501.9520, L100.0100, L500.4100, L500.4050 #### [facility] [address] [place], [address] Total proteinOrdered By: Lorenzo Ta on 01-18-2025 Protein [Mass/Vol] 7.9 g/dL 5.9-8.4 [facility] Triglycerides measurementOrd ered By: Monroe Ta on 01-18-2025 Triglyceride [Mass/Vol] 178 mg/dL <199 [facility] Comment on above: The drugs N-Acetylcy steine and Metamizole may falsely depress this assay. Normal range: <150 mg/dLBorderline High: 150-199 mg/dLHigh: 200-499 mg/dLVery High: >500 mg/dL White blood cell (WBC) count Ordered By: Monroe Ta on 01-18-2025 WBC (Bld) [#/Vol] 6.1 10*3/uL 4.4-11.0 [facility] Internal Medicine Office Vis iton 11-21-2024 Internal Medicine Office Visit [facility] [address] [place] [address] [address] [place], [place] [address] OFFICE VISIT Date of Service: 11/21/24 MR#: [id number] Acct: [id number] Name: LIZA BUSCH Rep #: [id number] : 1955 Provider: Dr. Laci montanez DO Age/Sex: 69/M Location: [facility] [place] Status: Signed Intake Vital Signs 08/22/24 09:22 11/21/24 09:57 Height 5 ft 10 in 5 ft 10 in Weight: 170 lb 169 lb BMI 24.3 24.2 BP 118/74 116/72 Blood Pressure Location Lt brachial Lt brachial Position Sitting Sitting Respiration 18 14 Pulse 91 88 Pulse Source Monitor Monitor Temp 97.5 F L 97.5 F L Temp Source Temporal Temporal Pulse Oximetry (%) 99 99 Oxygen Delivery Method room air room air Intake Visit Reasons: 3 M FU Chief Complaint: Recheck on his diabetes. Office Manager Required: No Is patient in pain?: No Allergies No Known Allergies Allergy (Verified 11/21/24 09:48) Medications ???Medication ???Instructions ???Recorded ???Confirmed ???Type lisinopril 20 mg tablet 20 mg PO DAILY #90 tabs 02/10/23 0 11/21/24 Rx blood sugar diagnostic (Accu-Chek #100 ea 07/13/23 11/21/24 Rx Guide test strips) blood-glucose meter (Accu-Chek #1 ea 07/13/23 11/21/24 Rx Guide Glucose Meter) lancets (Accu-Chek Softclix #100 ea 07/13/23 11/21/24 Rx Lancets) atorvastatin 10 mg tablet (Lipitor) 10 mg PO DAILY #90 tabs 2 4 11/21/24 Rx metformin 500 mg tablet 500 mg PO .COMPLEX #270 tabs 11/2111/21/24 Rx metformin 500 mg tablet 500 mg PO BID 11/21/24 History bonffwse-opvqqabw-ua lic acid 400 tab PO QDAY 11/21/24 11/21/24 Hist ory mcg-vit K 20 mcg-lycop 300 mcg tablet (One-A-Day Men's Multivitamin) Have you fallen in the past year?: No PFSH Medical History (Updated 11/21/24 @ 10:[address] Laci Billingsley DO) Hypertension Diabetes Arthritis Family History Mother Hypertension Social History Smoking Status: Former smoker alcohol intake: current alcohol intake frequency: a few times a month Alcohol type: beer substance use type: does not use what type of physical activity do you participate in: bicycling HPI HPI Chief Complaint: Recheck on his diabetes. Details: LIZA BUSCH, is a 69 M who presents to the office today for a follow-up on his diabetes. He says he feels very well but because of the cost of the Jardiance he has not been taking that. He has started a new habit of taking a 10 to 15-minute walk after each meal and I encouraged him that that is a very good thing to do. He really has no new complaints. ROS Const Constitutional: No body ache, chills, excessive sweating, fatigue, fever(s), frequent falls, headache(s), snoring, weakness, sleep problems or change in appetite Eyes Eyes: No blurry vision, change in vision, eye pain or Light sensitivity ENT ENT: No abnormal hearing, ear or mastoid pain, tinnitus, nasal congestion, headache(s), neck pain or sore throat Resp Respiratory: No cough, shortness of breath, snoring or wheezing Cardio Cardiology: No chest pain at rest, chest pain with exertion, excessive sweating, shortness of breath, dyspnea on exertion, lightheadedness, orthopnea or palpitations Gastro GI: No abdominal pain, change in bowel habits, constipation, cramping, diarrhea, nausea/dyspepsia or vomiting Genitourinary Male: No burning urination, painful urination, urinary incontinence or urinary frequency Musc Musculoskeletal: No abnormal gait, joint pain, back pain, limited range of motion, neck pain or numbness Skin Skin: No dry skin, redness, lesions, itchy eyes, rash or wounds Neuro Neurology: No abnormal gait, abnormal hearing, weakness, frequent falls, headache(s), memory loss or numbness Psych Psychiatric: No anxiety, No change in appetite, No depression, No memory loss and No Thoughts of harming yourself/Others Endo Endocrine: No cold intolerance, excessive sweating, fatigue, flushing, heat intolerance, increased thirst/drinking or increased hunger Aller/Imm Allergy/Immunologic: No itchy eyes, seasonal allergy symptoms, hives or wheezing Jesse/Lymp Hematologic/Lymphati c: No easy bleeding, easy bruising, enlarged lymph nodes or other Exam Const General: cooperative and healthy appearing Nutritional Appearance: average body habitus [facility] Head: normal to inspection Ears: hearing grossly normal bilaterally Nose: external nose normal Teeth and gingiva: dentition normal Eyes General: appearance normal, both eyes and all related structures Visual Do: normal visual do by confrontation Other: Mild bilateral cataract formation. Neck Neck: no lymphadenopathy Neck mass: No Resp Effort Inspection: normal respirat (more content not included)... Normal [facility] - Hematology and Cell countsOrdered By: Laci Billingsley on 11-21-2024 HbA1c (Bld) [Mass fraction] 8.3 % High 4.2-6.3 [facility] Urgent Care Visit Reporton 0 10-19-2024 Urgent Care Visit Report [facility] [address], [address] [place] [address] OFFICE VISIT Date of Service: 10/19/24 MR#: [id number] Acct: [id number] Name: LIZA BUSCH Rep #: [id number] : 1955 Provider: JESU Yip Age/Sex: 69/M Location: [facility] [place] Status: Signed Intake Vital Signs 08/22/24 09:22 10/19/24 10:19 Height 5 ft 10 in Weight: 170 lb 169 lb BMI 24.3 BP 118/74 142/86 H Blood Pressure Location Lt brachial Lt brachial Position Sitting Sitting Respiration 18 16 Pulse 91 84 Pulse Source Monitor Monitor Temp 97.5 F L 98.6 F Temp Source Temporal Oral Pulse Oximetry (%) 99 98 Oxygen Delivery Method room air room air Intake Visit Reasons: CONCERN FOR INFECTION ON R LEG Chief Complaint: leg pain Is patient in pain?: Yes (left greenwood) Pain scale (1-10): 1 Allergies No Known Allergies Allergy (Verified 10/19/24 10:18) Medications ???Medication ???Instructions ???Recorded ???Confirmed ???Type lisinopril 20 mg tablet 20 mg PO DAILY #90 tabs 02/10/23 0 10/19/24 Rx blood sugar diagnostic (Accu-Chek #100 ea 07/13/23 10/19/24 Rx Guide test strips) blood-glucose meter (Accu-Chek #1 ea 07/13/23 10/19/24 Rx Guide Glucose Meter) lancets (Accu-Chek Softclix #100 ea 07/13/23 10/19/24 Rx Lancets) atorvastatin 10 mg tablet (Lipitor) 10 mg PO DAILY #90 tabs 4 10/19/24 Rx sildenafil 50 mg tablet (Viagra) 50 mg PO DAILY PRN sexual activity 02/22/24 10/19/24 Rx #7 tabs empagliflozin 25 mg tablet 25 mg PO DAILY #30 tabs 03/16/24 0 10/19/24 Rx (Jardiance) metformin 500 mg tablet,extended 500 mg PO BID #180 tabs 03/28/24 0 10/19/24 Rx release 24hr (osmotic) metformin 500 mg tablet 1,000 mg (2 x 500 mg) PO BID #360 05/24/24 10/19/24 Rx tabs rrreqblo-jkwvbreu-uq lic acid 400 tab PO 08/22/24 10/19/24 History mcg-vit K 20 mcg-lycop 300 mcg tablet (One-A-Day Men's Multivitamin) cephalexin 500 mg capsule 500 mg PO Q12H 10 days #20 caps 10/19/24 Rx Have you fallen in the past year?: No Nurse's Note: left greenwood injury open area x 1 week tx- antibiotic cream qd PFSH Medical History (Updated 10/20/24 @ 06:46 by JESU Lopez) Hypertension Diabetes Arthritis Family History Mother Hypertension Social History Smoking Status: Former smoker alcohol intake: current alcohol intake frequency: a few times a month Alcohol type: beer substance use type: does not use what type of physical activity do you participate in: bicycling HPI HPI Chief Complaint: leg pain Details: LIZA BUSCH, is a 69 M who presents to the office today for initial evaluation of a left greenwood abrasion. Patient states that this occurred approximately 1 week ago and states being concerned as he is diabetic. He reports that the area has become somewhat more red than it was initially. He denies numbness, tingling or loss of range of motion. No fever, chills or sweats. No nausea, vomiting or diarrhea. No other associated symptoms or alleviating/aggravat ing factors. ROS Const Constitutional: No other (6 system ROS completed with pertinent findings in the HPI otherwise normal.) Exam Const General: cooperative and healthy appearing Resp Effort Inspection: normal respiratory effort Cardio Rate: regular rate Skin Other: Linear abrasion left lower leg mid greenwood measuring approximately 4 cm in length with appropriate granulation tissue and very minimal surrounding erythema. No streaking, fluctuance or drainage. Neuro General: patient alert Psych Appearance: grossly normal Mental Status: mental status grossly normal Coding Level of Care Code Off vis,new,level 3 Diagnoses Abrasion of skin of left lower leg S80.812A Assessment and Plan Assessment and Plan (1) Abrasion of skin of left lower leg: Status: Acute Medications: New cephalexin 500 mg PO Q12H 20 caps 0RF 10 days Plan Keflex as prescribed today. Encouraged to get plenty of rest, drink lots of clear liquids, and use Tylenol or Ibuprofen (unless contraindicated) for comfort. Patient also educated on other symptomatic management techniques. To be seen in 7-10 days if no improvement; sooner if worsening of symptoms. Patient advised of wound techniques as well as potential red flags and when appropriate to report to the ED. Patient verbalized understanding and agreement with all the above. Clinical Quality Measures Falls Risk Screening/Assistive Devices Have you fallen in the past year?: No 10/20/24 0647 Date Reuben Calabrese Signature: Date (more content not included)... Normal [facility] Internal Medicine Office Vis melissa 08-22-2024 Internal Medicine Office Visit [facility] [address] [place] [address] [place] [address] OFFICE VISIT Date of Service: 08/22/24 MR#: [id number] Acct: [id number] Name: LIZA BUSCH Rep #: [id number] : 1955 Provider: Dr. Laci montanez, DO Age/Sex: 69/M Location: [facility] [place] Status: Signed Intake Vital Signs 05/24/24 09:28 08/22/24 09:22 Height 5 ft 10 in 5 ft 10 in Weight: 166 lb 8 oz 170 lb BMI 23.8 24.3 BP 122/60 H 118/74 Blood Pressure Location Lt brachial Lt brachial Position Sitting Sitting Respiration 16 18 Pulse 62 91 Pulse Source Monitor Monitor Temp 97.7 F L 97.5 F L Temp Source Temporal Temporal Pulse Oximetry (%) 97 99 Oxygen Delivery Method room air room air Intake Visit Reasons: 3 M FU Chief Complaint: 3 M FU Allergies No Known Allergies Allergy (Verified 05/24/24 09:23) Medications ???Medication ???Instructions ???Recorded ???Confirmed ???Type lisinopril 20 mg tablet 20 mg PO DAILY #90 tabs 02/10/23 0 08/22/24 Rx blood sugar diagnostic (Accu-Chek #100 ea 07/13/23 08/22/24 Rx Guide test strips) blood-glucose meter (Accu-Chek #1 ea 07/13/23 08/22/24 Rx Guide Glucose Meter) lancets (Accu-Chek Softclix #100 ea 07/13/23 08/22/24 Rx Lancets) atorvastatin 10 mg tablet (Lipitor) 10 mg PO DAILY #90 tabs 4 08/22/24 Rx sildenafil 50 mg tablet (Viagra) 50 mg PO DAILY PRN sexual activity 02/22/24 08/22/24 Rx #7 tabs empagliflozin 25 mg tablet 25 mg PO DAILY #30 tabs 03/16/24 0 08/22/24 Rx (Jardiance) metformin 500 mg tablet,extended 500 mg PO BID #180 tabs 03/28/24 0 08/22/24 Rx release 24hr (osmotic) metformin 500 mg tablet 1,000 mg (2 x 500 mg) PO BID #360 05/24/24 08/22/24 Rx tabs kikxrggl-aivuklih-zj lic acid 400 tab PO 08/22/24 08/22/24 History mcg-vit K 20 mcg-lycop 300 mcg tablet (One-A-Day Men's Multivitamin) Have you fallen in the past year?: No PFSH Medical History Hypertension Diabetes Arthritis Family History Mother Hypertension Social History Smoking Status: Former smoker alcohol intake: current alcohol intake frequency: a few times a month Alcohol type: beer substance use type: does not use what type of physical activity do you participate in: bicycling HPI HPI Chief Complaint: 3 M FU Details: LIZA BUSCH, is a 69 M who presents to the office today for a 3-month diabetic follow-up. He voices no complaints. At his last visit we increased his metformin because his A1c was 7.9. ROS Const Constitutional: No body ache, chills, excessive sweating, fatigue, fever(s), frequent falls, headache(s), snoring, weight change, sleep problems, abnormal sleep pattern or change in appetite Eyes Eyes: No blurry vision, change in vision, eye pain or Light sensitivity ENT ENT: No abnormal hearing, ear or mastoid pain, tinnitus, nasal congestion, headache(s), neck pain or sore throat Resp Respiratory: No cough, shortness of breath, snoring or wheezing Cardio Cardiology: No chest pain at rest, chest pain with exertion, excessive sweating, shortness of breath, dyspnea on exertion, lightheadedness, orthopnea or palpitations Gastro GI: No abdominal pain, change in bowel habits, constipation, cramping, diarrhea, nausea/dyspepsia or vomiting Genitourinary Male: No burning urination, painful urination, urinary incontinence or urinary frequency Musc Musculoskeletal: No abnormal gait, joint pain, back pain, limited range of motion, neck pain, numbness or tingling Skin Skin: No dry skin, redness, lesions, itchy eyes, rash or wounds Neuro Neurology: No abnormal gait, abnormal hearing, frequent falls, headache(s), memory loss, numbness or tingling Psych Psychiatric: No abnormal sleep pattern, No anxiety, No change in appetite, No irritability, No memory loss and No Thoughts of harming yourself/Others Endo Endocrine: No cold intolerance, excessive sweating, fatigue, flushing, heat intolerance, increased thirst/drinking, increased hunger or weight change Aller/Imm Allergy/Immunologic: No itchy eyes, seasonal allergy symptoms, hives or wheezing Jesse/Lymp Hematologic/Lymphati c: No easy bleeding, easy bruising, enlarged lymph nodes or other Exam Const General: cooperative and healthy appearing Nutritional Appearance: average body habitus [facility] Head: normal to inspection Ears: hearing grossly normal bilaterally Nose: external nose normal Eyes General: appearance normal, both eyes and all related structures Visual Do: normal visual do by confrontation Other: Mild bilateral cataract formation. Neck Neck: no lymphadenopathy Neck mass: No Resp E (more content not included)... Normal [facility] - Hematology and Cell countsOrdered By: Laci Billingsley on 08-22-2024 HbA1c (Bld) [Mass fraction] 7.7 % High 4.2-6.3 [facility] Internal Medicine Office Vis iton 05-24-2024 Internal Medicine Office Visit [facility] [address] [place] [address] [place] [address] OFFICE VISIT Date of Service: 05/24/24 MR#: [id number] Acct: [id number] Name: LIZA BUSCH Rep #: [id number] : 1955 Provider: Dr. Laci Ibarra Br own, DO Age/Sex: 68/M Location: [facility] [place] Status: Signed Intake Vital Signs 02/22/24 15:26 05/24/24 09:28 Height 5 ft 10 in 5 ft 10 in Weight: 167 lb 166 lb 8 oz BMI 23.9 23.8 BP 122/82 H 122/60 H Blood Pressure Location Lt brachial Lt brachial Position Sitting Sitting Respiration 14 16 Pulse 56 L 62 Pulse Source Monitor Monitor Temp 97.7 F L 97.7 F L Temp Source Temporal Temporal Pulse Oximetry (%) 97 97 Oxygen Delivery Method room air room air Intake Visit Reasons: 3 M FU Chief Complaint: Diabetes recheck. Office Manager Required: No Accompanied by: Self Is patient in pain?: No Allergies No Known Allergies Allergy (Verified 05/24/24 09:23) Medications ???Medication ???Instructions ???Recorded ???Confirmed ???Type lisinopril 20 mg tablet 20 mg PO DAILY #90 tabs 02/10/23 05/24/24 Rx blood sugar diagnostic (Accu-Chek #100 ea 07/13/23 05/24/24 Rx Guide test strips) blood-glucose meter (Accu-Chek #1 ea 07/13/23 05/24/24 Rx Guide Glucose Meter) lancets (Accu-Chek Softclix #100 ea 07/13/23 05/24/24 Rx Lancets) atorvastatin 10 mg tablet (Lipitor) 10 mg PO DAILY #90 tabs 02/22/24 05/24/24 Rx sildenafil 50 mg tablet (Viagra) 50 mg PO DAILY PRN sexual activity 02/22/24 05/24/24 Rx #7 tabs empagliflozin 25 mg tablet 25 mg PO DAILY #30 tabs 03/16/24 05/24/24 Rx (Jardiance) metformin 500 mg tablet,extended 500 mg PO BID #180 tabs 03/28/24 05/24/24 Rx release 24hr (osmotic) metformin 500 mg tablet 1,000 mg (2 x 500 mg) PO BID #360 05/24/24 05/24/24 Rx tabs Have you fallen in the past year?: No PFSH Medical History Hypertension Diabetes Arthritis Family History Mother Hypertension Social History Smoking Status: Former smoker alcohol intake: current alcohol intake frequency: a few times a month Alcohol type: beer substance use type: does not use what type of physical activity do you participate in: bicycling HPI HPI Chief Complaint: Diabetes recheck. Details: LIZA BUSCH, is a 68 M who presents to the office today for follow-up on his diabetes. He stopped the Farxiga 3 months ago because the cost was going to be about $500 a month and he simply could not afford it. He says he really does not feel any different on the medicine or off the medicine. ROS Const Constitutional: No body ache, chills, excessive sweating, fatigue, fever(s), frequent falls, headache(s), snoring, weakness or change in appetite Eyes Eyes: No blurry vision, change in vision, eye pain or Light sensitivity ENT ENT: No abnormal hearing, ear or mastoid pain, tinnitus, nasal congestion, headache(s), neck pain or sore throat Resp Respiratory: No cough, shortness of breath, snoring or wheezing Cardio Cardiology: No chest pain at rest, chest pain with exertion, excessive sweating, dyspnea on exertion, lightheadedness, orthopnea or palpitations Gastro GI: No abdominal pain, change in bowel habits, constipation, cramping, diarrhea, nausea/dyspepsia or vomiting Genitourinary Male: No burning urination, painful urination, urinary incontinence or urinary frequency Musc Musculoskeletal: No abnormal gait, joint pain, back pain, limited range of motion, muscle weakness, neck pain or numbness Skin Skin: No dry skin, redness, lesions, itchy eyes, rash or wounds Neuro Neurology: No abnormal gait, abnormal hearing, weakness, frequent falls, headache(s), memory loss or numbness Psych Psychiatric: No anxiety, No change in appetite, No depression, No memory loss and No Thoughts of harming yourself/Others Endo Endocrine: No cold intolerance, excessive sweating, fatigue, flushing, heat intolerance, increased thirst/drinking or increased hunger Aller/Imm Allergy/Immunologic: No itchy eyes, seasonal allergy symptoms, hives or wheezing Jesse/Lymp Hematologic/Lymphati c: No easy bleeding or easy bruising Exam Const General: cooperative and healthy appearing Nutritional Appearance: average body habitus [facility] Head: normal to inspection Ears: hearing grossly normal bilaterally Nose: external nose normal Eyes General: appearance normal, both eyes and all related structures Visual Do: normal visual do by confrontation Neck Neck: no lymphadenopathy Neck mass: No Resp Effort Inspection: normal respiratory effort Auscultation: Bilateral: Clear to Auscultation Cardio Rate: regular rate Rhythm: regular rh (more content not included)... Normal [facility] Metabolic Prof robin 02-22-2024 Albumin [Mass/Vol] 3.8 g/dL Normal 3.2-5.0 [facility] Comment on above: Performed By: #### L 500.4100, L500.4050 #### [facility] [address] [place], [address] Albumin/Globulin [Mass ratio] 0.9 {ratio} Normal 0.9-2.4 [facility] Comment on above: Performed By: #### L 500.4100, L500.4050 #### [facility] [address] [place], [address] ALK P 86 U/L Normal 45-117 [facility] Comment on above: Performed By: #### L 500.4100, [id number] #### [facility] [address] [place], [address] ALT [Catalytic activity/Vol] 52 U/L Normal 16-61 [facility] Comment on above: Performed By: #### L 500.4100, [id number] #### [facility] [address] [place], [address] AST [Catalytic activity/Vol] 27 U/L Normal 15-37 [facility] Comment on above: Performed By: #### L 500.4100, L500.4050 #### [facility] [address] [place], [address] Bilirubin [Mass/Vol] 0.30 mg/dL Normal 0.20-1.00 [facility] Comment on above: Result Comment: For patients on eltrombopag therapy, use of Dimension Viola TBIL is not recommended. Performed By: #### L 500.4100, L500.4050 #### [facility] [address] [place], [address] BUN/CRE 19.2 RATIO Normal 10-20 [facility] Comment on above: Performed By: #### L 500.4100, [id number] #### [facility] [address] [place], [address] CA,Total 9.2 mg/dL Normal 8.5-10.1 [facility] Comment on above: Performed By: #### L 500.4100, [id number] #### [facility] [address] [place], [address] Chloride [Moles/Vol] 105 mmol/L Normal 98-107 [facility] Comment on above: Performed By: #### L 500.4100, L500.4050 #### [facility] [address] [place], [address] CO2 [Moles/Vol] 23.0 mmol/L Normal 21.0-32.0 [facility] Comment on above: Performed By: #### L 500.4100, [id number] #### [facility] [address] [place], [address] Creatinine [Mass/Vol] 1.30 mg/dL Normal 0.70-1.30 [facility] Comment on above: Result Comment: The validity of the calculated GFR GFRAA in patients over 70 years has not been determined. Clinical correlation is essential. Performed By: #### L 500.4100, L500.4050 #### [facility] [address] [place], [address] EST GFR - AA 70 mL/min Normal >60 [facility] Comment on above: Result Comment: Afri can Mauritian GFR Calc Performed By: #### L 500.4100, [id number] #### [facility] [address] [place], [address] GAP 12 Normal 5-15 [facility] Comment on above: Performed By: #### L 500.4100, [id number] #### [facility] [address] [place], [address] GFR/1.73 sq M.predicted among non-blacks MDRD (S/P/Bld) [Vol rate/Area] 58 mL/min/{1.73_m2} Low >60 [facility] Comment on above: Result Comment: Non- GFR Calc Performed By: #### L 500.4100, L500.4050 #### [facility] [address] [place], [address] Globulin (S) [Mass/Vol] 4.1 g/dL Normal 2.2-4.2 [facility] Comment on above: Performed By: #### L 500.4100, [id number] #### [facility] [address] [place], [address] Glucose [Mass/Vol] 147 mg/dL High 74-106 [facility] Comment on above: Result Comment: Fast ing Glucose result greater than or equal to 126 mg/dL suggests DIABETES MELLITUS per A.D.A. criteria. Performed By: #### L 500.4100, L500.4050 #### [facility] [address] [place], [address] Potassium [Moles/Vol] 3.7 mmol/L Normal 3.5-5.1 [facility] Comment on above: Performed By: #### L 500.4100, [id number] #### [facility] [address] [place], [address] Sodium [Moles/Vol] 140 mmol/L Normal 136-145 [facility] Comment on above: Performed By: #### L 500.4100, [id number] #### [facility] [address] [place], [address] T PROT 7.9 g/dL Normal 6.4-8.2 [facility] Comment on above: Performed By: #### L 500.4100, L500.4050 #### [facility] [address] [place], [address] Urea nitrogen [Mass/Vol] 25 mg/dL High 7-18 [facility] Comment on above: Performed By: #### L 500.4100, [id number] #### [facility] [address] [place], [address] Internal Medicine Office Vis iton 02-22-2024 Internal Medicine Office Visit [facility] [address] [place] [address] [place] [address] OFFICE VISIT Date of Service: 02/22/24 MR#: [id number] Acct: [id number] Name: LIZA BUSCH Rep #: [id number] : 1955 Provider: Dr. Laci montanez DO Age/Sex: 68/M Location: [facility] [place] Status: Signed Intake Vital Signs 10/06/23 10:29 02/22/24 15:26 Height 5 ft 10 in 5 ft 10 in Weight: 166 lb 4 oz 167 lb BMI 23.8 23.9 BP 122/82 H 122/82 H Blood Pressure Location Lt brachial Lt brachial Position Sitting Sitting Respiration 16 14 Pulse 71 56 L Pulse Source Monitor Monitor Temp 97.7 F L 97.7 F L Temp Source Temporal Temporal Pulse Oximetry (%) 99 97 Oxygen Delivery Method room air room air Intake Visit Reasons: FU Chief Complaint: Diabetes recheck. Office Manager Required: No Is patient in pain?: No Allergies No Known Allergies Allergy (Verified 02/22/24 15:25) Medications ???Medication ???Instructions ???Recorded ???Confirmed ???Type lisinopril 20 mg tablet 20 mg PO DAILY #90 tabs 02/10/23 02/22/24 Rx blood sugar diagnostic (Accu-Chek #100 ea 07/13/23 02/22/24 Rx Guide test strips) blood-glucose meter (Accu-Chek #1 ea 07/13/23 02/22/24 Rx Guide Glucose Meter) lancets (Accu-Chek Softclix #100 ea 07/13/23 02/22/24 Rx Lancets) metformin 500 mg tablet,extended 500 mg PO BID #180 tabs 10/06/23 02/22/24 Rx release 24hr (osmotic) empagliflozin 25 mg tablet 25 mg PO DAILY #30 tabs 11/16/23 02/22/24 Rx (Jardiance) atorvastatin 10 mg tablet (Lipitor) 10 mg PO DAILY #90 tabs 02/22/24 02/22/24 Rx sildenafil 50 mg tablet (Viagra) 50 mg PO DAILY PRN sexual activity 02/22/24 02/22/24 Rx #7 tabs Have you fallen in the past year?: No Nurse's Note: Needs sildenafil and lipitor refilled. [facility] Medical History Hypertension Diabetes Arthritis Family History Mother Hypertension Social History Smoking Status: Former smoker alcohol intake: current alcohol intake frequency: a few times a month Alcohol type: beer substance use type: does not use what type of physical activity do you participate in: bicycling HPI HPI Chief Complaint: Diabetes recheck. Details: LIZA BUSCH, is a 68 M who presents to the office today for a recheck on his diabetes. He brings his glucose monitor and his readings have been consistently excellent with a high only being about 130 in the low being only about 102 so he is got a very narrow control. He feels very well and really has no complaints. He looks quite a bit younger than his age. Exam Const General: cooperative and healthy appearing Nutritional Appearance: average body habitus [facility] Head: normal to inspection Ears: hearing grossly normal bilaterally Nose: external nose normal Eyes General: appearance normal, both eyes and all related structures Visual Do: normal visual do by confrontation Neck Neck: no lymphadenopathy Neck mass: No Resp Effort Inspection: normal respiratory effort Auscultation: Bilateral: Clear to Auscultation Cardio Rate: regular rate Rhythm: regular rhythm Musc Musculoskeletal: No joint tenderness or decreased range of motion Skin General: no rashes or lesions noted Neuro General: normal sensation to monofilament Gait: normal gait Extrem General: no clubbing, cyanosis or edema Psych Affect: normal affect Judgment: judgment good Results POC A1C POC A1C 7.4 % Last Edit by Inga Miles MA on 02/22/24 15:29 Coding Level of Care Code Off vis,est,level 3 Diagnoses Essential hypertension I10 Hypertension type: essential hypertension Type 2 diabetes mellitus without complication, without long-term current use of insulin E11.9 Diabetes mellitus type: type 2 Diabetes mellitus detention insulin use: without ferry terminal agent use Diabetes mellitus complication status: without complication Erectile dysfunction, unspecified erectile dysfunction type N52.9 Erectile dysfunction type: unspecified Assessment and Plan Assessment and Plan (1) Hypertension: Status: Chronic Qualifiers: Hypertension type: essential hypertension Qualified Code(s): I10 - Essential (primary) hypertension Comment: Blood pressure is under excellent control. (2) Diabetes: Status: Chronic Qualifiers: Diabetes mellitus type: type 2 Diabetes mellitus ferry terminal agent insulin use: without detention use Diabetes mellitus complication status: without complication Qualified Code(s): E11.9 - Type 2 diabetes mellitus without complications Plan: His hemoglobin A1c is 7.4 showing very good diabetic control. (3) Erectile dysfunction: Status: Acute Qualifiers: Erectile dysf (more content not included)... Normal [facility] Lipid Profileon 02-22-2024 Cholesterol [Mass/Vol] 168 mg/dL Normal 200 [facility] Comment on above: Result Comment: <200 mg/dL Desirable 200-240 mg/dL Borderline >240 mg/dL High Risk Performed By: #### L 500.4100, L500.4050 #### [facility] [address] [place], [address] Cholesterol in HDL [Mass/Vol] 50 mg/dL Normal [facility] Comment on above: Result Comment: The drugs N-Acetylcysteine and Metamizole may falsely depress this assay. Reference Range HDL <40 mg/dL Low HDL Cholesterol HDL >or= 60 mg/dL High HDL Cholesterol Performed By: #### L 500.4100, L500.4050 #### [facility] [address] [place], [address] Cholesterol in LDL [Mass/Vol] 62 mg/dL Normal 0-130 [facility] Comment on above: Performed By: #### L 500.4100, L500.4050 #### [facility] [address] [place], [address] Cholesterol in VLDL [Mass/Vol] 56 mg/dL High 5-40 [facility] Comment on above: Performed By: #### L 500.4100, L500.4050 #### [facility] [address] [place], [place], [address] Triglyceride [Mass/Vol] 282 mg/dL High [facility] Comment on above: Result Comment: The drugs N-Acetylcysteine and Metamizole may falsely depress this assay. Serum Triglycerides Reference Interval Normal <150 mg/dL Borderline high 150 - 199 mg/dL High 200 - 499 mg/dL Very High > or = 500 mg/dL Performed By: #### L 500.4100, L500.4050 #### [facility] [address] [facility] [place], [place], [address] Basophil percentageOrdered B y: Laci Brown on 02-02-2023 Bilirubin [Mass/Vol] 0.50 mg/dL 0.20-1.00 [facility] Comment on above: For patients on eltr ombopag therapy, use of Dimension Viola TBIL is not recommended. Chloride [Moles/Vol] 104 mmol/L 98-107 [facility] Cholesterol [Mass/Vol] 212 mg/dL <200 [facility] Comment on above: <200 mg/dL Desirable 200-240 mg/dL Borderline >240 mg/dL High Risk Glucose [Mass/Vol] 118 mg/dL 74-106 [facility] Comment on above: Fasting Glucose resu lt from 100 to 125 mg/dL suggests IMPAIRED HOMEOSTASIS per A.D.A. criteria. Potassium [Moles/Vol] 4.6 mmol/L 3.5-5.1 [facility] Protein [Mass/Vol] 7.8 g/dL 6.4-8.2 [facility] Sodium [Moles/Vol] 138 mmol/L 136-145 [facility] Triglyceride [Mass/Vol] 302 mg/dL <199 [facility] Comment on above: The drugs N-Acetylcy steine and Metamizole may falsely depress this assay.Serum Triglycerides Reference Interval Normal <150 mg/dL Borderline high 150 - 199 mg/dL High 200 - 499 mg/dL Very High > or = 500 mg/dL Laboratory - Chemistry and C hemistry - challengeOrdered By: Laci Billingsley on 02-02-2023 ALP [Catalytic activity/Vol] 77 U/L 45-117 [facility] ALT [Catalytic activity/Vol] 58 U/L 16-61 [facility] CO2 [Moles/Vol] 26.0 mmol/L 21.0-32.0 [facility] Globulin (S) [Mass/Vol] 3.7 g/dL 2.2-4.2 [facility] Urea nitrogen/Creatinine [Mass ratio] 15.5 mg/mg 10-20 [facility] - Hematology and Cell countson 02-02-2023 HbA1c (Bld) [Mass fraction] 7.7 % 4.2-6.3 [facility] No Panel InformationOrdered By: Laci Billingsley on 02-02-2023 Estimated GFR (MDRD) Amer 86 mL/min >60 [facility] Comment on above: GFR Calc Estimated GFR (MDRD) Non-Af Amer 71 mL/min >60 [facility] Comment on above: Non- GFR Calc Serum or plasma albumin kristina urement (mass/volume)Ordered By: Laci Billingsley on 02-02-2023 Albumin [Mass/Vol] 4.1 g/dL 3.2-5.0 [facility] Serum or plasma albumin/glob ulin mass ratioOrdered By: Laci Billingsley on 02-02-2023 Albumin/Globulin [Mass ratio] 1.1 {ratio} 0.9-2.4 [facility] Serum or plasma calcium kristina urement (mass/volume)Ordered By: Laci Billingsley on 02-02-2023 Calcium [Mass/Vol] 9.5 mg/dL 8.5-10.1 [facility] Serum or plasma cholesterol in HDL measurement (mass/volume)Ordered By: Laci Billingsley on 02-02-2023 Cholesterol in HDL [Mass/Vol] 48 mg/dL >40 [facility] Comment on above: The drugs N-Acetylcy steine and Metamizole may falsely depress this assay. Reference Range HDL <40 mg/dL Low HDL Cholesterol HDL >or= 60 mg/dL High HDL Cholesterol Serum or plasma cholesterol in VLDL measurement (mass/volume)Ordered By: Laci Billingsley on 02-02-2023 Cholesterol in VLDL [Mass/Vol] 60 mg/dL 5-40 [facility] Serum or plasma creatinine m easurement (mass/volume)Ordered By: Laci Billingslye on 02-02-2023 Creatinine [Mass/Vol] 1.10 mg/dL 0.70-1.30 [facility] Comment on above: The validity of the calculated GFR & GFRAA in patients over 70 years has not been determined. Clinical correlation is essential. Serum or plasma low density lipoprotein (LDL) cholesterol measurement (mass/volume)Ordered By: Laci Billingsley on 02-02-2023 Cholesterol in LDL [Mass/Vol] 104 mg/dL 0-130 [facility] Serum or plasma urea nitroge n measurement (mass/volume)Ordered By: Laci Billingsley on 02-02-2023 Urea nitrogen [Mass/Vol] 17 mg/dL 7-18 [facility] Thin prep Papanicolaou smear with manual screeningOrdered By: Laci Billingsley on 02-02-2023 Thin prep Papanicolaou smear with manual screening 34 U/L 15-37 [facility] Thin prep Papanicolaou smear with manual screening 8 5-15 [facility] - Hematology and Cell countson 10-28-2022 HbA1c (Bld) [Mass fraction] 7.4 % 4.2-6.3 [facility] Basophil percentageon 2021 Basophil percentage 3.1 mg/dL 2.5-4.9 [facility] Work Phone: Chloride [Moles/Vol] 103 mmol/L 98-107 [facility] Work Phone: Glucose [Mass/Vol] 144 mg/dL 74-106 [facility] Work Phone: Comment on above: Fasting Glucose resu lt greater than or equal to 126 mg/dL suggests DIABETES MELLITUS per A.D.A. criteria. Potassium [Moles/Vol] 4.4 mmol/L 3.5-5.1 [facility] Work Phone: Comment on above: Slight Hemolysis, Re sult may be falsely increased. Sodium [Moles/Vol] 137 mmol/L 136-145 [facility] Work Phone: Laboratory - Chemistry and C hemistry - challengeon 11-28-2021 CO2 [Moles/Vol] 28.0 mmol/L 21.0-32.0 [facility] Work Phone: Urea nitrogen/Creatinine [Mass ratio] 13.7 mg/mg 10-20 [facility] Work Phone: No Panel Informationon 11-28 Estimated GFR (MDRD) Amer 80 mL/min >60 [facility] Work Phone: Comment on above: GFR Calc Estimated GFR (MDRD) Non-Af Amer 66 mL/min >60 [facility] Work Phone: Comment on above: Non- GFR Calc Serum or plasma albumin kristina urement (mass/volume)on 11-28-2021 Albumin [Mass/Vol] 4.0 g/dL 3.2-5.0 [facility] Work Phone: Serum or plasma calcium kristina urement (mass/volume)on 11-28-2021 Calcium [Mass/Vol] 9.4 mg/dL 8.5-10.1 [facility] Work Phone: Serum or plasma creatinine m easurement (mass/volume)on 11-28-2021 Creatinine [Mass/Vol] 1.17 mg/dL 0.70-1.30 [facility] Work Phone: Comment on above: The validity of the calculated GFR & GFRAA in patients over 70 years has not been determined. Clinical correlation is essential. Serum or plasma urea nitroge n measurement (mass/volume)on 11-28-2021 Urea nitrogen [Mass/Vol] 16 mg/dL 7-18 [facility] Work Phone: Basophil percentageon 2021 Bilirubin [Mass/Vol] 0.50 mg/dL 0.20-1.00 [facility] Work Phone: Comment on above: For patients on eltr ombopag therapy, use of Dimension Viola TBIL is not recommended. Chloride [Moles/Vol] 101 mmol/L 98-107 [facility] Work Phone: Glucose [Mass/Vol] 211 mg/dL 74-106 [facility] Work Phone: Comment on above: Glucose result great er than or equal to 200 mg/dLsuggests DIABETES MELLITUS per A.D.A. criteria. Potassium [Moles/Vol] 4.0 mmol/L 3.5-5.1 [facility] Work Phone: Comment on above: Slight Hemolysis, Re sult may be falsely increased. Protein [Mass/Vol] 7.9 g/dL 6.4-8.2 [facility] Work Phone: Sodium [Moles/Vol] 134 mmol/L 136-145 [facility] Work Phone: Laboratory - Chemistry and C hemistry - challengeon 10-15-2021 ALP [Catalytic activity/Vol] 72 U/L 45-117 [facility] Work Phone: ALT [Catalytic activity/Vol] 45 U/L 16-61 [facility] Work Phone: CO2 [Moles/Vol] 25.0 mmol/L 21.0-32.0 [facility] Work Phone: Globulin (S) [Mass/Vol] 4.0 g/dL 2.2-4.2 [facility] Work Phone: Urea nitrogen/Creatinine [Mass ratio] 11.0 mg/mg 10-20 [facility] Work Phone: Laboratory - Hematology and Cell countson 10-15-2021 HbA1c (Bld) [Mass fraction] 8.0 % 4.2-6.3 [facility] Work Phone: No Panel Informationon 10-15 Estimated GFR (MDRD) Amer 58 mL/min >60 [facility] Work Phone: Comment on above: GFR Calc Estimated GFR (MDRD) Non-Af Amer 48 mL/min >60 [facility] Work Phone: Comment on above: Non- GFR Calc Urine Microalbumin/Creatinine Ratio 9.1 mg/g CRE <30 [facility] Work Phone: Serum or plasma albumin kristina urement (mass/volume)on 10-15-2021 Albumin [Mass/Vol] 3.9 g/dL 3.2-5.0 [facility] Work Phone: Serum or plasma albumin/glob ulin mass ratioon 10-15-2021 Albumin/Globulin [Mass ratio] 1.0 {ratio} 0.9-2.4 [facility] Work Phone: Serum or plasma calcium kristina urement (mass/volume)on 10-15-2021 Calcium [Mass/Vol] 9.2 mg/dL 8.5-10.1 [facility] Work Phone: Serum or plasma creatinine m easurement (mass/volume)on 10-15-2021 Creatinine [Mass/Vol] 1.55 mg/dL 0.70-1.30 [facility] Work Phone: Comment on above: The validity of the calculated GFR & GFRAA in patients over 70 years has not been determined. Clinical correlation is essential. Serum or plasma urea nitroge n measurement (mass/volume)on 10-15-2021 Urea nitrogen [Mass/Vol] 17 mg/dL 7-18 [facility] Work Phone: Thin prep Papanicolaou smear with manual screeningon 10-15-2021 Thin prep Papanicolaou smear with manual screening 24 U/L 15-37 [facility] Work Phone: Comment on above: Slight Hemolysis, Re sult may be falsely increased. Thin prep Papanicolaou smear with manual screening 8 5-15 [facility] Work Phone: Thin prep Papanicolaou smear with manual screening 24.4 mg/L NO RANGE EST. [facility] Work Phone: Urine creatinine measurement (mass/volume)on 10-15-2021 Creatinine (U) [Mass/Vol] 267.00 mg/dL NO RANGE EST. [facility] Work Phone: Vital Signs Date Time Vital Sign Value Performing Clinician Facility 01-18-2025 12:40-0400 Body height 177.[address] Laci Billingsley DO Work Phone: [facility] 01-18-2025 12:40-0400 Body mass index (BMI) [Ratio] 24 kg/m2 Dr. Laci Billingsley DO Work Phone: [facility] 01-18-2025 12:40-0400 Body temperature 97.7 [degF] Dr. Laci Billingsley DO Work Phone: [facility] 01-18-2025 12:40-0400 Body weight 76.[address] Laci Billingsley DO Work Phone: [facility] 01-18-2025 12:40-0400 Diastolic blood pressure 82 mm[Hg] Dr. Laci Billingsley DO Work Phone: [facility] 01-18-2025 12:40-0400 Heart rate 88 /min Dr. Lcai Billingsley DO Work Phone: [facility] 01-18-2025 12:40-0400 Respiratory rate 18 /min Dr. Laci Billingsley DO Work Phone: [facility] 01-18-2025 12:40-0400 SaO2% (BldA) [Mass fraction] 98 % Dr. Laci Billingsley DO Work Phone: [facility] 01-18-2025 12:40-0400 Systolic blood pressure 124 mm[Hg] Dr. Laci Billingsley DO Work Phone: [facility] 11-21-2024 09:57-0400 Body height 177.[address] Laci Billingsley DO Work Phone: [facility] 11-21-2024 09:57-0400 Body mass index (BMI) [Ratio] 24.2 kg/m2 Dr. Laci Billingsley DO Work Phone: [facility] 11-21-2024 09:57-0400 Body temperature 97.5 [degF] Dr. Laci Billingsley DO Work Phone: [facility] 11-21-2024 09:57-0400 Body weight 76.[address] Laci Billingsley DO Work Phone: [facility] 11-21-2024 09:57-0400 Diastolic blood pressure 72 mm[Hg] Dr. Laci Billingsley DO Work Phone: [facility] 11-21-2024 09:57-0400 Heart rate 88 /min Dr. Laci Billingsley DO Work Phone: [facility] 11-21-2024 09:57-0400 Respiratory rate 14 /min Dr. Laci Billingsley DO Work Phone: [facility] 11-21-2024 09:57-0400 SaO2% (BldA) [Mass fraction] 99 % Dr. Laci Billingsley DO Work Phone: [facility] 11-21-2024 09:57-0400 Systolic blood pressure 116 mm[Hg] Dr. Laci Billingsley DO Work Phone: [facility] 10-19-2024 10:19-0400 Body temperature 98.6 [degF] Dr. Laci Billingsley DO Work Phone: [facility] 10-19-2024 10:19-0400 Body weight 76.[address] Laci Billingsley DO Work Phone: [facility] 10-19-2024 10:19-0400 Diastolic blood pressure 86 mm[Hg] Dr. Laci Billingsley DO Work Phone: [facility] 10-19-2024 10:19-0400 Heart rate 84 /min Dr. Laci Billingsley DO Work Phone: [facility] 10-19-2024 10:19-0400 Respiratory rate 16 /min Dr. Laci Billingsley DO Work Phone: [facility] 10-19-2024 10:19-0400 SaO2% (BldA) [Mass fraction] 98 % Dr. Laci Billingsley DO Work Phone: [facility] 10-19-2024 10:19-0400 Systolic blood pressure 142 mm[Hg] Dr. Laci Billingsley DO Work Phone: [facility] 08-22-2024 09:22-0400 Body height 177.[address] Laci Billingsley DO Work Phone: [facility] 08-22-2024 09:22-0400 Body mass index (BMI) [Ratio] 24.3 kg/m2 Dr. Laci Billingsley DO Work Phone: [facility] 08-22-2024 09:22-0400 Body temperature 97.5 [degF] Dr. Laci Billingsley DO Work Phone: [facility] 08-22-2024 09:22-0400 Body weight 77.[address] Laci Billingsley DO Work Phone: [facility] 08-22-2024 09:22-0400 Diastolic blood pressure 74 mm[Hg] Dr. Laci Billingsley DO Work Phone: [facility] 08-22-2024 09:22-0400 Heart rate 91 /min Dr. Laci Billingsley DO Work Phone: [facility] 08-22-2024 09:22-0400 Respiratory rate 18 /min Dr. Laci Billingsley DO Work Phone: [facility] 08-22-2024 09:22-0400 SaO2% (BldA) [Mass fraction] 99 % Dr. Laci Billingsley DO Work Phone: [facility] 08-22-2024 09:22-0400 Systolic blood pressure 118 mm[Hg] Dr. Laci Billingsley DO Work Phone: [facility] 09-27-2023 10:54-0400 Diastolic Blood Pressure Non-Invasive 75 mm[Hg] DR RONDA MCKINNON MD [facility] 09-27-2023 10:54-0400 Heart rate 67 /min DR RONDA MCKINNON MD [facility] 09-27-2023 10:54-0400 Respiratory rate 12 /min DR RONDA MCKINNON MD [facility] 09-27-2023 10:54-0400 Systolic Blood Pressure Non-Invasive 121 mm[Hg] DR RONDA MCKINNON MD [facility] 09-27-2023 10:45-0400 Diastolic Blood Pressure Non-Invasive 70 mm[Hg] DR RONDA MCKINNON MD [facility] 09-27-2023 10:45-0400 Heart rate 71 /min DR RONDA MCKINNON MD [facility] 09-27-2023 10:45-0400 Respiratory rate 13 /min DR RONDA MCKINNON MD [facility] 09-27-2023 10:45-0400 Systolic Blood Pressure Non-Invasive 108 mm[Hg] DR RONDA MCKINNON MD [facility] 09-27-2023 10:38-0400 Diastolic Blood Pressure Non-Invasive 69 mm[Hg] DR RONDA MCKINNON MD [facility] 09-27-2023 10:38-0400 Heart rate 72 /min DR RONDA MCKINNON MD [facility] 09-27-2023 10:38-0400 Respiratory rate 14 /min DR RONDA MCKINNON MD [facility] 09-27-2023 10:38-0400 Systolic Blood Pressure Non-Invasive 101 mm[Hg] DR RONDA MCKINNON MD [facility] 09-27-2023 10:30-0400 Respiratory Rate - Anes 13 br/min DR RONDA MCKINNON MD [facility] 09-27-2023 10:25-0400 Respiratory Rate - Anes 14 br/min DR RONDA MCKINNON MD [facility] 09-27-2023 10:20-0400 Respiratory Rate - Anes 15 br/min DR RONDA MCKINNON MD [facility] 09-27-2023 08:50-0400 Body height [address] RONDA MCKINNON MD [facility] 09-27-2023 08:50-0400 Body temperature 97.16 [degF] DR RONDA MCKINNON MD [facility] 09-27-2023 08:50-0400 Body weight 76.[address] RONDA MCKINNON MD [facility] 09-27-2023 08:50-0400 Body weight 24.14 kg/m2 DR RONDA MCKINNON MD [facility] 09-27-2023 08:50-0400 Heart rate 77 /min DR RONDA MCKINNON MD [facility] 02-02-2023 10:56-0400 Body height 177.[address] Laci Billingsley Work Phone: [facility] 02-02-2023 10:56-0400 Body mass index (BMI) [Ratio] 24.7 kg/m2 Dr. Laci Billingsley Work Phone: [facility] 02-02-2023 10:56-0400 Body temperature 97.4 [degF] Dr. Laci Billingsley Work Phone: [facility] 02-02-2023 10:56-0400 Body weight 78.[address] Laci Billingsley Work Phone: [facility] 02-02-2023 10:56-0400 Diastolic blood pressure 80 mm[Hg] Dr. Laci Billingsley Work Phone: [facility] 02-02-2023 10:56-0400 Heart rate 65 /min Dr. Laci Billingsley Work Phone: [facility] 02-02-2023 10:56-0400 Respiratory rate 16 /min Dr. Laci Billingsley Work Phone: [facility] 02-02-2023 10:56-0400 SaO2% (BldA) [Mass fraction] 99 % Dr. Laci Billingsley Work Phone: [facility] 02-02-2023 10:56-0400 Systolic blood pressure 120 mm[Hg] Dr. Laci Billingsley Work Phone: [facility] 10-28-2022 11:29-0400 Body mass index (BMI) [Ratio] 24.7 kg/m2 Dr. Laci Billingsley Work Phone: [facility] 10-28-2022 11:29-0400 Body temperature 98.2 [degF] Dr. Laci Billingsley Work Phone: [facility] 10-28-2022 11:29-0400 Body weight 78.[address] Laci Billingsley Work Phone: [facility] 10-28-2022 11:29-0400 Diastolic blood pressure 70 mm[Hg] Dr. Laci Billingsley Work Phone: [facility] 10-28-2022 11:29-0400 Heart rate 81 /min Dr. Laci Billingsley Work Phone: [facility] 10-28-2022 11:29-0400 Respiratory rate 18 /min Dr. Laci Billingsley Work Phone: [facility] 10-28-2022 11:29-0400 SaO2% (BldA) [Mass fraction] 96 % Dr. Laci Billingsley Work Phone: [facility] 10-28-2022 11:29-0400 Systolic blood pressure 110 mm[Hg] Dr. Laci Billingsley Work Phone: [facility] 10-15-2021 13:34-0400 Body height 179.[address] Laci Billingsley Work Phone: [facility] Work Phone: 10-15-2021 13:34-0400 Body mass index (BMI) [Ratio] 24.2 kg/m2 Dr. Laci Billingsley Work Phone: [facility] Work Phone: 10-15-2021 13:34-0400 Body temperature 98.1 [degF] Dr. Laci Billingsley Work Phone: [facility] Work Phone: 10-15-2021 13:34-0400 Body weight 78.[address] Laci Billingsley Work Phone: [facility] Work Phone: 10-15-2021 13:34-0400 Diastolic blood pressure 64 mm[Hg] Dr. Laci Billingsley Work Phone: [facility] Work Phone: 10-15-2021 13:34-0400 Heart rate 89 /min Dr. Laci Billingsley Work Phone: [facility] Work Phone: 10-15-2021 13:34-0400 Respiratory rate 16 /min Dr. Laci Billingsley Work Phone: [facility] Work Phone: 10-15-2021 13:34-0400 SaO2% (BldA) [Mass fraction] 99 % Dr. Laci Billingsley Work Phone: [facility] Work Phone: 10-15-2021 13:34-0400 Systolic blood pressure 104 mm[Hg] Dr. Laci Billingsley Work Phone: [facility] Work Phone: 10-15-2021 13:34-0400 Body height 179.[address] Laci Billingsley Work Phone: [facility] Work Phone: 10-15-2021 13:34-0400 Body mass index (BMI) [Ratio] 24.2 kg/m2 Dr. Laci Billingsley Work Phone: [facility] Work Phone: 10-15-2021 13:34-0400 Body temperature 98.1 [degF] Dr. Laci Billingsley Work Phone: [facility] Work Phone: 10-15-2021 13:34-0400 Body weight 78.[address] Laci Billingsley Work Phone: [facility] Work Phone: 10-15-2021 13:34-0400 Diastolic blood pressure 64 mm[Hg] Dr. Laci Billingsley Work Phone: [facility] Work Phone: 10-15-2021 13:34-0400 Heart rate 89 /min Dr. Laci Billingsley Work Phone: [facility] Work Phone: 10-15-2021 13:34-0400 Respiratory rate 16 /min Dr. Laci Billingsley Work Phone: [facility] Work Phone: 10-15-2021 13:34-0400 SaO2% (BldA) [Mass fraction] 99 % Dr. Laci Billingsley Work Phone: [facility] Work Phone: 10-15-2021 13:34-0400 Systolic blood pressure 104 mm[Hg] Dr. Laci Billingsley Work Phone: [facility] Work Phone: Encounters Encounter Date Encounter Type Care Provider Facility Start: 02-14-2025 ambulatory Laci Jordan y:[facility] Start: 01-23-2025 End: 01-23-[address] Laci Billingsley DO Work Phone: -Pulmonary Services/Neurology Start: 01-23-2025 End: 01-23-2025 Patient encounter procedure [place] [facility] -Pulmonary Services/Neurology Work Phone: Start: 01-23-2025 End: 01-23-2025 ambulatory Laci Billingsley Facility:[facility] Start: 01-18-2025 End: 01-18-[address] Laci Billingsley DO Work Phone: -Laboratory Start: 01-18-2025 End: 01-18-2025 Patient encounter procedure [facility] -Laboratory Work Phone: Start: 01-18-2025 End: 01-18-2025 Patient encounter procedure [place] [facility] -[facility] Work Phone: Start: 01-18-2025 End: 01-18-[address] Laci Billingsley DO Work Phone: -[facility] Start: 01-18-2025 End: 01-18-2025 ambulatory Laci Billingsley Facility:[facility] Start: 11-21-2024 End: 11-21-[address] Laci Ibarra DO -[facility] Work Phone: Start: 11-21-2024 End: 11-21-[address] Laci Billingsley DO Work Phone: [facility] Work Phone: Start: 10-19-2024 End: 10-19-2024 Patient encounter procedure Re[facility] NAILS -[facility] Work Phone: Start: 10-19-2024 End: 10-19-[address] Laci Billingsley DO Work Phone: [facility] Work Phone: Start: 08-22-2024 End: 08-22-[address] Laci Ibarra DO -[facility] Work Phone: Start: 08-22-2024 End: 08-22-2024 ambulatory Laci Billingsley Facility:[facility] Start: 05-24-2024 End: 05-24-2024 ambulatory Laci Stacey Billingsley Facility:[facility] Start: 02-22-2024 End: 02-22-2024 ambulatory Laci Billingsley Facility:[facility] Start: 02-22-2024 End: 02-22-2024 ambulatory Laci Stacey Billingsley Facility:[facility] Start: 09-27-2023 End: 09-27-[address] RONDA MCKINNON MD Facility:[facility] Start: 09-27-2023 End: 09-27-[address] RONDA MCKINNON MD [facility] Start: 02-02-2023 End: 02-02-[address] Laci Billingsley Work Phone: [facility] Work Phone: Start: 02-02-2023 End: 02-02-[address] Laci Billingsley Work Phone: [facility] Work Phone: Start: 10-28-2022 End: 10-28-[address] Laci Billingsley Work Phone: [facility] Work Phone: Start: 11-28-2021 End: 11-28-[address] Laci Billingsley Work Phone: [facility]-Laboratory, [facility] Start: 10-15-2021 End: 10-15-[address] Laci Billingsley Work Phone: [facility] Internal Medicine Procedures Date Procedure Procedure Detail Performing Clinician Start: 09-27-[address] RONDA MCKINNON MD Plan of Treatment Date Care Activity Detail Author CBC W Auto Differential panel - Blood [facility] Comprehensive metabo lic 1999 panel - Serum or Plasma [facility] Electrocardiographic procedure [facility] Lipid 1995 panel - Serum or Plasma [facility] Radionuclide imaging of perfusion of myocardium under exercise stress [facility] pital Thyroid stimulating hormone measurement [facility] Payers Date Payer Category Payer Self-pay [id number] 2023 Unknown [id number] 1955 Unknown [id number] 2.16.8 [id number] Unknown [id number] Unknown [id number] 2.16.8 [id number] Unknown [id number] 2.16.8 [id number] Unknown [id number] 2.16.8 [id number] Unknown [id number] 2.16.8 [id number] Unknown [id number] 2.16.8 [id number] Unknown [id number] 2.16.8 [id number] Unknown [id number] 2.16.8 [id number] Unknown [id number] 2.16.8 [id number] Unknown [id number] 2.16.8 [id number] Unknown [id number] 2.16.8 [id number] Unknown [id number] 2.16.8 [id number] Social History Date Type Detail Facility Start: 10-15-2021 End: 02-02-2023 Tobacco smoking status NHIS Unknown if ever smoked [facility] Start: 1955 Sex Assigned At Male [facility] Start: 09-27-2023 Tobacco smoking status Never s moked tobacco (finding) [facility] Sex Assigned At Sex [facility] Start: 07-21-2023 Tobacco smoking stat us NHIS Ex-smoker (finding) [facility] Medical Equipment Procedure Code Equipment Code Equipment Origin al Text Equipment Identifier Dates Blood Sugar Diagnostic (Freestyle Test) strip Start: 07-24-2020 Blood Sugar Diagnostic (Freestyle Test) strip Start: 11-22-2018 End: 11-22-2018 Blood Sugar Diagnostic (Freestyle Test) strip Start: 11-22-2018 End: 07-24-2020 Blood Sugar Diagnostic (Freestyle Test) strip Start: 11-28-2021 Blood Sugar Diagnostic (Freestyle Test) strip Start: 11-22-2018 End: 11-22-2018 Blood Sugar Diagnostic (Freestyle Test) strip Start: 07-24-2020 End: 11-28-2021 Blood Sugar Diagnostic (Freestyle Test) strip Start: 11-22-2018 End: 07-24-2020 Blood Sugar Diagnostic (Freestyle Test) strip Start: 11-28-2021 Blood Sugar Diagnostic (Freestyle Test) strip Start: 11-22-2018 End: 11-22-2018 Blood Sugar Diagnostic (Freestyle Test) strip Start: 07-24-2020 End: 11-28-2021 Blood Sugar Diagnostic (Freestyle Test) strip Start: 11-22-2018 End: 07-24-2020 Blood Sugar Diagnostic (Accu-Chek Guide Test Strips) strip Start: 07-13-2023 Lancets (Accu-Ch ek Softclix Lancets) misc Start: 07-13-2023 Blood Sugar Diagnostic (Accu-Chek Guide Test Strips) strip Start: 07-13-2023 End: 07-13-2023 Blood Sugar Diagnostic (Freestyle Test) strip Start: 11-22-2018 End: 11-22-2018 Blood Sugar Diagnostic (Freestyle Test) strip Start: 07-24-2020 End: 11-28-2021 Blood Sugar Diagnostic (Freestyle Test) strip Start: 11-22-2018 End: 07-24-2020 Blood Sugar Diagnostic (Freestyle Test) strip Start: 11-28-2021 End: 07-13-2023 Lancets (Accu-Ch ek Softclix Lancets) misc Start: 07-13-2023 End: 07-13-2023 Blood Sugar Diagnostic (Accu-Chek Guide Test Strips) strip Start: 07-13-2023 Lancets (Accu-Ch ek Softclix Lancets) misc Start: 07-13-2023 Blood Sugar Diagnostic (Accu-Chek Guide Test Strips) strip Start: 07-13-2023 End: 07-13-2023 Blood Sugar Diagnostic (Freestyle Test) strip Start: 11-22-2018 End: 11-22-2018 Blood Sugar Diagnostic (Freestyle Test) strip Start: 07-24-2020 End: 11-28-2021 Blood Sugar Diagnostic (Freestyle Test) strip Start: 11-22-2018 End: 07-24-2020 Blood Sugar Diagnostic (Freestyle Test) strip Start: 11-28-2021 End: 07-13-2023 Lancets (Accu-Ch ek Softclix Lancets) misc Start: 07-13-2023 End: 07-13-2023 Blood Sugar Diagnostic (Accu-Chek Guide Test Strips) strip Start: 01-18-2025 Lancets (Accu-Ch ek Softclix Lancets) misc Start: 07-13-2023 Blood Sugar Diagnostic (Accu-Chek Guide Test Strips) strip Start: 07-13-2023 End: 07-13-2023 Blood Sugar Diagnostic (Accu-Chek Guide Test Strips) strip Start: 07-13-2023 End: 01-18-2025 Blood Sugar Diagnostic (Freestyle Test) strip Start: 11-22-2018 End: 11-22-2018 Blood Sugar Diagnostic (Freestyle Test) strip Start: 07-24-2020 End: 11-28-2021 Blood Sugar Diagnostic (Freestyle Test) strip Start: 11-22-2018 End: 07-24-2020 Blood Sugar Diagnostic (Freestyle Test) strip Start: 11-28-2021 End: 07-13-2023 Lancets (Accu-Ch ek Softclix Lancets) misc Start: 07-13-2023 End: 07-13-2023 Blood Sugar Diagnostic (Accu-Chek Guide Test Strips) strip Start: 01-18-2025 Lancets (Accu-Ch ek Softclix Lancets) misc Start: 07-13-2023 Blood Sugar Diagnostic (Accu-Chek Guide Test Strips) strip Start: 07-13-2023 End: 07-13-2023 Blood Sugar Diagnostic (Accu-Chek Guide Test Strips) strip Start: 07-13-2023 End: 01-18-2025 Blood Sugar Diagnostic (Freestyle Test) strip Start: 11-22-2018 End: 11-22-2018 Blood Sugar Diagnostic (Freestyle Test) strip Start: 07-24-2020 End: 11-28-2021 Blood Sugar Diagnostic (Freestyle Test) strip Start: 11-22-2018 End: 07-24-2020 Blood Sugar Diagnostic (Freestyle Test) strip Start: 11-28-2021 End: 07-13-2023 Lancets (Accu-Ch ek Softclix Lancets) misc Start: 07-13-2023 End: 07-13-2023 Blood Sugar Diagnostic (Accu-Chek Guide Test Strips) strip Start: 01-18-2025 Lancets (Accu-Ch ek Softclix Lancets) misc Start: 07-13-2023 Blood Sugar Diagnostic (Accu-Chek Guide Test Strips) strip Start: 07-13-2023 End: 07-13-2023 Blood Sugar Diagnostic (Accu-Chek Guide Test Strips) strip Start: 07-13-2023 End: 01-18-2025 Blood Sugar Diagnostic (Freestyle Test) strip Start: 11-22-2018 End: 11-22-2018 Blood Sugar Diagnostic (Freestyle Test) strip Start: 07-24-2020 End: 11-28-2021 Blood Sugar Diagnostic (Freestyle Test) strip Start: 11-22-2018 End: 07-24-2020 Blood Sugar Diagnostic (Freestyle Test) strip Start: 11-28-2021 End: 07-13-2023 Lancets (Accu-Ch ek Softclix Lancets) misc Start: 07-13-2023 End: 07-13-2023 Functional Status Date Assessment Result Facility 09-27-2023 Functional Status Repositions self [facility] 09-27-2023 Functional Status Maintained, Less than 8 hours [facility] Mental Status Date Assessment Result Facility 09-27-2023 Mental Status Orientation Asse ssment Oriented x 4 [facility] Clinical Notes 09-27-2023 to 10-19-2024 Note Date & Type Note Facility 10-19-2024 Evaluation note Diagnosis Onset Date Resolution Abrasion of skin of left lower leg acute October 19, 2024 10:11am Diabetes chronic November 21 9:44am Erectile dysfunction chronic November 21, 2024 9:44am Hypertension chronic November 21, 025 9:44am Exertional dyspnea acute January 18, 2025 12:29pm Hypertension chronic January 18, 2025 12:29pm [facility] Work Phone: 1(929) 837-682005-15-2025 Evaluation note* Diagnosis Onset Date Resolution Status Admit Date Abrasion of skin of left low er leg acute October 19, 2024 1 0:11am Diabetes chronic November 21 9:44am Erectile dysfunction chronic November 21, 2024 9:44am Hypertension chronic November 21, 025 9:44am Exertional dyspnea acute January 18, 2025 12:29pm LOC (loss of consciousness) acute January 18, 2025 12:29pm Hypertension chronic January 18, 2025 12:29pm [facility] Work Phone: 1(885) 636-710903-18-2025 Evaluation note* Diagnosis Onset Date Resolution Status Admit Date Erectile dysfunction acute Alexis h 2024 9:18am Diabetes chronic August 22 9:18am Hypertension chronic August 22, 2024 9:18am [facility] Work Phone: 1(579) 130-159003-18-2025 Evaluation note* Diagnosis Onset Date Resolution Status Admit Date Diabetes chronic August 22 9:18am Erectile dysfunction chronic Alexis h 2024 9:18am Hypertension chronic August 22, 2024 9:18am Abrasion of skin of left low er leg acute October 19, 2024 1 0:11am Diabetes chronic November 21 9:44am Erectile dysfunction chronic November 21, 2024 9:44am Hypertension chronic November 21 025 9:44am [facility] Work Phone: 1(616) 516-591004-22-2024 Hospital Discharge instructions Patient Education 09/27/2023 10:41:18 Moderate Conscious Sedation, Adult, Care After Moderate Conscious Sedation, Adult, Care After These instructions provide you with information about caring for yourself after your procedure. Your health care provider may also give you more specific instructions. Your treatment has been plannedaccording to current medical practices, but problems sometimes occur. Call your health care provider if you have any problems or questions after your procedure. What can I expect after the procedure? After your procedure, it is common: To feel sleepy for several hours. To feel clumsy and have poor balance for several hours. To have poor judgment for several hours. To vomit if you eat too soon. Follow these instructions at home: For at least 24 hours after the procedure: Do not: ?Participate in activities where you could fall or become injured. ?Drive. ?Use heavy machinery. ?Drink alcohol. ?Take sleeping pills or medicines that cause drowsiness. ?Make important decisions or sign legal documents. ?Take care of children on your own. Rest. Eating and drinking Follow the diet recommended by your health care provider. If you vomit: ?Drink water, juice, or soup when you can drink without vomiting. ?Make sure you have little or no nausea before eating solid foods. General instructions Have a responsible adult stay with you until you are awake and alert. Take [id number] and prescription medicines only as told by your health care provider. If you smoke, do not smoke without supervision. Keep all follow-up visits as told by your health care provider. This is important. Contact a health care provider if: You keep feeling nauseous or you keep vomiting. You feel light-headed. You develop a rash. You have a fever. Get help right away if: You have trouble breathing. This information is not intended to replace advice given to you by your health care provider. Make sure you discuss any questions you have with your health care provider. Document Released: 03/14/2014 Document Revised: 05/06/2018 Document Reviewed: 09/12/2016 [employer] Patient Education 2020 [employer]. 09/27/2023 10:41:11 Colonoscopy, Adult, Care After, Uqhp-wy-Gajt Colonoscopy, Adult, Care After This sheet gives you information about how to care for yourself after your procedure. Your doctor may also give you more specific instructions. If you have problems or questions, call your doctor. What can I expect after the procedure? After the procedure, it is common to have: A small amount of blood in your poop for 24 hours. Some gas. Mild cramping or bloating in your belly. Follow these instructions at home: General instructions For the first 24 hours after the procedure: ?Do not drive or use machinery. ?Do not sign important documents. ?Do not drink alcohol. ?Do your daily activities more slowly than normal. ?Eat foods that are soft and easy to digest. Take pute-cje-vmwwrrf or prescription medicines only as told by your doctor. To help cramping and bloating: Try walking around. Put heat on your belly (abdomen) as told by your doctor. Use a heat source that your doctor recommends, such as a moist heat pack or a heating pad. ?Put a towel between your skin and the heat source. ?Leave the heat on for 20 30 minutes. ?Remove the heat if your skin turns bright red. This is especially important if you cannot feel pain, heat, or cold. You can get burned. Eating and drinking Drink enough fluid to keep your pee (urine) clear or pale yellow. Return to your normal diet as told by your doctor. Avoid heavy or fried foods that are hard to digest. Avoid drinking alcohol for as long as told by your doctor. Contact a doctor if: You have blood in your poop (stool) 2 3 days after the procedure. Get help right away if: You have more than a small amount of blood in your poop. You see large clumps of tissue (blood clots) in your poop. Your belly is swollen. You feel sick to your stomach (nauseous). You throw up (vomit). You have a fever. You have belly pain that gets worse, and medicine does not help your pain. Summary After the procedure, it is common to have a small amount of blood in your poop. You may also have mild cramping and bloating in your belly. For the first 24 hours after the procedure, do not drive or use machinery, do not sign important documents, and do not drink alcohol. Get help right away if you have a lot of blood in your poop, feel sick to your stomach, have a fever, or have more belly pain. This information is not intended to replace advice given to you by your health care provider. Make sure you discuss any questions you have with your health care provider. Document Released: 06/26/2011 Document Revised: 03/24/2018 Document Reviewed: 02/15/2017 [employer] Patient Education 2020 [employer]. Follow Up Care 09/23/2023 09:00:02 With:RONDA MCKINNON MD Address[address] [facility] [address] [place] [address] [phone] When: Unknown Comments:Repeat colonoscopy in 7-10 years [facility] 04-22-2024 Summary of episode note Discharge Instructions Thank you for allowing [place] to assist you with your healthcare needs. The following is importantdischarge information regarding your hospital visit. Your Care Team LACI BILLINGSLEY DO Your Diagnosis Encounter for screening colonoscopy, Encounter for screening colonoscopy for ajj-zjyf-rknc patient What to do next Follow Up Appointments Follow Up with RONDA MCKINNON MD When Why: Repeat colonoscopy in 7-10 years Where: [address] [facility] [address] [place] [address] [phone] Allergies NKA Medications Please ask your primary doctor or pharmacist before taking any other medication not listed, including over the counter drugs, herbal medications, vitamins and or supplements as they may interact withyour home medications. What How Much When Instructions Last Dose Unchanged atorvastatin (atorvastatin 10 mg oral tablet) Unchanged empagliflozin (Jardiance 25 mg oral tablet) Unchanged lisinopril (lisinopril 20 mg oral tablet) 1 tab(s) by mouth Once a day Please take this list to your next doctor s visit. Bring all medications you take, including over the counter medications, herbals and other supplements with you to your doctor s visit. Patients and families are reminded to discard old lists and to update any records with all medication providers or retail pharmacies. Education Materials Moderate Conscious Sedation, Adult, Care After These instructions provide you with information about caring for yourself after your procedure. Your health care provider may also give you more specific instructions. Your treatment has been plannedaccording to current medical practices, but problems sometimes occur. Call your health care provider if you have any problems or questions after your procedure. What can I expect after the procedure? After your procedure, it is common: To feel sleepy for several hours. To feel clumsy and have poor balance for several hours. To have poor judgment for several hours. To vomit if you eat too soon. Follow these instructions at home: For at least 24 hours after the procedure: Do not: ? Participate in activities where you could fall or become injured. ? Drive. ? Use heavy machinery. ? Drink alcohol. ? Take sleeping pills or medicines that cause drowsiness. ? Make important decisions or sign legal documents. ? Take care of children on your own. Rest. Eating and drinking Follow the diet recommended by your health care provider. If you vomit: ? Drink water, juice, or soup when you can drink without vomiting. ? Make sure you have little or no nausea before eating solid foods. General instructions Have a responsible adult stay with you until you are awake and alert. Take aqhz-dwr-esiagzl and prescription medicines only as told by your health care provider. If you smoke, do not smoke without supervision. Keep all follow-up visits as told by your health care provider. This is important. Contact a health care provider if: You keep feeling nauseous or you keep vomiting. You feel light-headed. You develop a rash. You have a fever. Get help right away if: You have trouble breathing. This information is not intended to replace advice given to you by your health care provider. Make sure you discuss any questions you have with your health care provider. Document Released: 03/14/2014 Document Revised: 05/06/2018 Document Reviewed: 09/12/2016 [employer] Patient Education 2020 [employer]. Colonoscopy, Adult, Care After This sheet gives you information about how to care for yourself after your procedure. Your doctor may also give you more specific instructions. If you have problems or questions, call your doctor. What can I expect after the procedure? After the procedure, it is common to have: A small amount of blood in your poop for 24 hours. Some gas. Mild cramping or bloating in your belly. Follow these instructions at home: General instructions For the first 24 hours after the procedure: ? Do not drive or use machinery. ? Do not sign important documents. ? Do not drink alcohol. ? Do your daily activities more slowly than normal. ? Eat foods that are soft and easy to digest. Take cnmx-ppy-tigsfmy or prescription medicines only as told by your doctor. To help cramping and bloating: Try walking around. Put heat on your belly (abdomen) as told by your doctor. Use a heat source that your doctor recommends, such as a moist heat pack or a heating pad. ? Put a towel between your skin and the heat source. ? Leave the heat on for 20 30 minutes. ? Remove the heat if your skin turns bright red. This is especially important if you cannot feel pain, heat, or cold. You can get burned. Eating and drinking Drink enough fluid to keep your pee (urine) clear or pale yellow. Return to your normal diet as told by your doctor. Avoid heavy or fried foods that are hard to digest. Avoid drinking alcohol for as long as told by your doctor. Contact a doctor if: You have blood in your poop (stool) 2 3 days after the procedure. Get help right away if: You have more than a small amount of blood in your poop. You see large clumps of tissue (blood clots) in your poop. Your belly is swollen. You feel sick to your stomach (nauseous). You throw up (vomit). You have a fever. You have belly pain that gets worse, and medicine does not help your pain. Summary After the procedure, it is common to have a small amount of blood in your poop. You may also have mild cramping and bloating in your belly. For the first 24 hours after the procedure, do not drive or use machinery, do not sign important documents, and do not drink alcohol. Get help right away if you have a lot of blood in your poop, feel sick to your stomach, have a fever, or have more belly pain. This information is not intended to replace advice given to you by your health care provider. Make sure you discuss any questions you have with your health care provider. Document Released: 06/26/2011 Document Revised: 03/24/2018 Document Reviewed: 02/15/2017 [employer] Patient Education 2020 [employer] Additional Information VACCINATE! IT SAVES LIVES! Members of the community who have not yet received the COVID-19 vaccine and would like to receive it can visit one of [facility] vaccine clinics. There are many vaccine clinic locations within the [facility]. For locations and available times, please visit [email or web address] It is important to note that some COVID mobile vaccine clinics are held outdoors and may be canceled in rainy or stormy conditions. To learn more about pediatric vaccinations (ages 5-11), we invite you to visit the [facility] webpage. [email or web address] learn more about the COVID-19 vaccine, we invite you to visit the CDC website for a list of frequently asked questions.https://www.cdc.gov/coronavirus/2019-ncov/vaccines/faq.html [employer] Patient Portal Access Instructions: Stay connected with your healthcare team and access your personal medical information anytime with the [facility] Patient Portal. Please follow the directions below to create your [employer] account: 1.Access the email account you provided upon registration to the hospital/physician office.2.Look for an invitation email from [facility].3.Open the email and access the invitation link: AcceptInvitation to [email or web address].4.Fill in the required do to create your account. To access your account, visit [employer] in [employer]. Click the blue button labeled Access Patient Portal and then log in with the username and password that you created in the steps above. You will be able to view your test results, lab results, a summary of your visits, upcoming appointments and more. There is also a convenient messaging option where you can send secure messages to your p rovider. In addition, you will have the ability to download any documents or summaries to your computer and/or send the information securely to a physician. Remember that your healthcare information is confidential, so carefully consider who you will allowto register on the [employer] Patient Portal for access to your information. You can also access the [facility] One[facility] Patient Portal on the [employer] jenny. Simply click on Patient Portal and then log into your account. If you would like to receive a full copy of your medical records, please contact the [facility] Medical Records Department by calling [phone], Wednesday through Wednesday between 8 a.m. and 4:30 p.m. HOW TO SAFELY DISPOSE OF PRESCRIPTION MEDICATIONS Please use one of the following methods to safely dispose of your unused medications. 1.Use a drug disposal kit: the drug disposal pouch allows you to safely discard your old and unuseddrugs. Ask your nurse to give you one when you are discharged.2.Visit a local take-back location: Many local pharmacies and police departments have programs that collect old and unwanted prescriptiondrugs. Call your local pharmacy or go to http://SABIA.Teamer.net/9E3Ln1i to find one close to you.3.Make use of household items: Use cat litter or old coffee grounds to dispose medications if other options arenot available. Mix your drugs with these household products, seal them in an airtight container andthrow it into the garbage. Call [facility]: [phone] to be sure your drugs can be disposed of in this way. Some medicines may require a different approach.4.Never flush your medications down the toilet. IF YOU HAVE BEEN PRESCRIBED AN OPIOID FOR PAIN If you have been prescribed an opioid (such as hydrocodone, oxycodone or morphine), it is critical to understand the possible side effects and risks of opioid pain medications. Even when taken as directed, opioids can have several side effects including: Tolerance, meaning you might need to take more of a medication for the same pain relief. Nausea, vomiting and/or constipation. Sleepiness, dizziness, dry mouth, confusion, depression or itching. Physical dependence, meaning you have withdrawal symptoms when a medication is stopped, can develop within a few days. KNOW YOUR RESPONSIBILITIES It is important to know exactly how much and how often to take the opioid pain medications you are prescribed. Never take opioids in higher amounts or more often than prescribed. Do not combine opioids with alcohol or other drugs that cause drowsiness, such as benzodiazepines, also known as benzos, including diazepam and alprazolam, muscle relaxants or sleep aids. Never sell or share prescription opioids. This is illegal. Store opioids in a secure place and out of reach of others (including children, family, friends and visitors). The last page of this document has been signed and retained as a CHART COPY. Signatures Patient Education Materials Moderate Conscious Sedation, Adult, Care After Colonoscopy, Adult, Care After, Wkkh-rt-Tnsg Medication Leaflets My discharge plan and instructions have been reviewed and explained to me and I,LIZA BUSCH understand my current condition and have read and understand these discharge instructions. I have received a written copy of the plan/instructions. If I have questions, I am aware that I should contact my doctor. Patient/Census Enumerator Signature: Date/Time: Relationship to Patient: Witness Name/Signature: Date/Time: [facility]04-22-2024 Anesthesiology Consult note Patient: LIZA BUSCH Age: 68 years Sex: Male : 1955 Associated Diagnoses: None Author: MELINA REARDON Preoperative Information Time of last solid food intake: 09/27/2023 00:00:00 Time of last clear liquid intake: 09/27/2023 05:30:00 Anesthesia history Patient's history: negative. Family's history: negative. Health Status Allergies: Allergic Reactions (Selected) NKA, Allergies (1) ActiveReaction NKANone Documented Current medications: (Selected) Inpatient Medications Ordered LR 1,000 mL: 50 mL/hr, Intravenous Documented Medications Documented Jardiance 25 mg oral tablet: 0 Refill(s) atorvastatin 10 mg oral tablet: 0 Refill(s) lisinopril 20 mg oral tablet: 20 mg, 1 tab(s), Oral, qDay, 0 Refill(s), Medications (1) Active Scheduled: (0) Continuous: (1) Lactated Ringers 1,000 mL 1,000 mL, Intravenous, 50 mL/hr PRN: (0) Problem list: Active Problems (3) Arthritis DM (diabetes mellitus) HTN (hypertension) Histories Past Medical History: No active or resolved past medical history items have been selected or recorded. Family History: Cancer - unknown origin Brother Procedure history: Colonoscopy ([id number]) on 09/27/2023 at 68 Years. Social History Social & Psychosocial Habits Alcohol 09/27/2023 Use: Current Frequency: 1-2 times per year Substance Abuse 09/27/2023 Use: Never Tobacco 09/27/2023 Tobacco Use: Never (less than 100 in l . Physical Examination Vital Signs 09/27/2023 10:30 EDT Heart Rate Monitored 72 bpm bpm Respiratory Rate - Anes 13 br/min br/min Systolic Blood Pressure Non-Invasive 113 mmHg mmHg Diastolic Blood Pressure Non-Invasive 75 mmHg mmHg 09/27/2023 10:25 EDT Heart Rate Monitored 73 bpm bpm Respiratory Rate - Anes 14 br/min br/min Systolic Blood Pressure Non-Invasive 130 mmHg mmHg Diastolic Blood Pressure Non-Invasive 90 mmHg mmHg 09/27/2023 10:20 EDT Heart Rate Monitored 70 bpm bpm Respiratory Rate - Anes 15 br/min br/min Systolic Blood Pressure Non-Invasive 151 mmHg mmHg Diastolic Blood Pressure Non-Invasive 89 mmHg mmHg 09/27/2023 10:18 EDT Systolic Blood Pressure Non-Invasive 145 mmHg mmHg Diastolic Blood Pressure Non-Invasive 88 mmHg mmHg 09/27/2023 8:50 EDT Temperature Temporal Artery 36.2 DegC Peripheral Pulse Rate 77 bpm Respiratory Rate 19 br/min Systolic Blood Pressure Non-Invasive 144 mmHg HI Diastolic Blood Pressure Non-Invasive 90 mmHg HI Vital Signs(last 24 hrs) Last Charted Heart Rate Ldociuxdr32 bpm (SEP 26 10:30) JCN144 mmHg (SEP 26 10:30) DBP75 mmHg (SEP 26 10:30) BMI24.14 (SEP 26 08:50) Measurements from flowsheet : Measurements 09/27/2023 8:50 EDT Height 178 cm Admission Weight 76.5 kg [place] Body Weight 73.18 kg BSA Admission 1.94 Body Mass Index 24.14 kg/m2 General: Alert and oriented. Airway: Normal temporomandibular joint mobility, Normal mouth, Normal neck range of motion. Mallampati classification: II (soft palate, fauces, uvula visible). Dentition Evaluation: Denies loose/chipped teeth. Respiratory: Respirations are non-labored. Cardiovascular: Normal rate. Neurologic: Alert, Oriented. Review / Management Results review: No qualifying data available , Lab results 09/27/2023 10:34 EDT Anesthesiology Consultation Postanesthesia Evaluation* 09/27/2023 10:33 EDT SN - Cul - Culture Type No Specimen per Surgeon 09/27/2023 10:33 EDT Colonoscopy Procedure Note Procedure Note 09/27/2023 10:32 EDT SN - CTm - Anesthesia Stop Time Anesthesia Stop Anesthesia Final Record OP Colonoscopy 09/27/2023 10:32 EDT Lactated Ringers Injection 1,[address] [facility] Procedure Record [facility] Procedure Record (Modified) 09/27/2023 10:30 EDT Heart Rate Monitored 72 bpm bpm Respiratory Rate - Anes 13 br/min br/min Systolic Blood Pressure Non-Invasive 113 mmHg mmHg Diastolic Blood Pressure Non-Invasive 75 mmHg mmHg Oxygen Saturation 100 % % 09/27/2023 10:27 EDT propofol 80 mg mg 09/27/2023 10:25 EDT SN - WV - Medication simethicone 40 mg/0.6 mL Liquid 30mL SN - WV - Route of Administration Endoscopic SN - WV - By (Single) SN - WV - By (Single) SN - WV - Time Administered 09/27/2023 10:25 09/27/2023 10:25 EDT Heart Rate Monitored 73 bpm bpm Respiratory Rate - Anes 14 br/min br/min Systolic Blood Pressure Non-Invasive 130 mmHg mmHg Diastolic Blood Pressure Non-Invasive 90 mmHg mmHg Oxygen Saturation 100 % % 09/27/2023 10:23 EDT SN - PP - Body Position Lateral Right Side-up Standard Intra-op 09/27/2023 10:23 EDT SN - GCD - ASA Class 3 SN - GCD - Post-operative Diagnosis SCREENING SN - GCD - Case Level OPD Level 3 09/27/2023 10:23 EDT SN - Proc - Anesthesia Type MAC SN - Proc - EBL 0 mL SN - Proc - Actual Procedure COLONOSCOPY 09/27/2023 10:22 EDT lidocaine 40 mg mg propofol 100 mg mg 09/27/2023 10:20 EDT Heart Rate Monitored 70 bpm bpm Respiratory Rate - Anes 15 br/min br/min Systolic Blood Pressure Non-Invasive 151 mmHg mmHg Diastolic Blood Pressure Non-Invasive 89 mmHg mmHg Oxygen Saturation 100 % % 09/27/2023 10:19 EDT History and Physical Update History and Physical Update Note 09/27/2023 10:19 EDT SN - CAt - Case Attendee SN - CAt - Case Attendee SN - CAt - Case Attendee SN - CAt - Case Attendee SN - CAt - Case Attendee SN - CAt - Case Attendee SN - CAt - Case Attendee SN - CAt - Case Attendee SN - CAt - Role Performed Primary Surgeon SN - CAt - Role Performed Embedded Software Engineer 1 SN - CAt - Role Performed Instructor Flying SN - CAt - Role Performed TESTING SHAKING SHIPPING 09/27/2023 10:18 EDT SN - CTm - Anesthesia Start Time Anesthesia Start 09/27/2023 10:18 EDT Systolic Blood Pressure Non-Invasive 145 mmHg mmHg Diastolic Blood Pressure Non-Invasive 88 mmHg mmHg 09/27/2023 10:16 EDT Lactated Ringers Injection Begin Bag 1,000 mL mL 09/27/2023 9:02 EDT Continuous IV Infusions lr Antecubital Right 09/27/2023 22 gauge Peripheral IV Activity: Insert new site Peripheral IV Dressing Condition: Clean, Dry, Intact Peripheral IV Dressing Activity: Applied, Transparent dressing Peripheral IV Line Status/Patency: Flushes easily Peripheral IV Line Care: Secured with tape Peripheral IV Site Condition: No complications Peripheral IV Equipment: Extension set Peripheral IV Number of Attempts: 2 09/27/2023 9:01 EDT Lactated Ringers Injection Begin Bag 1,000 mL mL 09/27/2023 8:53 EDT Urinary Elimination Voiding, no difficulties IV Present Present Anesthesia Extension Set Applied Yes Colon Prep Results Excellent Consent Form Signed Yes Patient Dressed In Hospital gown History & Physical Update On Chart Yes History & Physical On Chart Yes Bowel Prep Completed Yes NPO Status Maintained, Less than 8 hours Patient ID Band on and Verified Yes Site Verified by Patient/Family Yes Anesthesia Consent Signed Yes Last Fluid Intake 09/27/2023 6:00 Last Food Intake 09/26/2023 15:00 09/27/2023 8:50 EDT Designated Person #1 [facility] [phone] Designated Person #1 Relationship Daughter Height 178 cm Admission Weight 76.5 kg [place] Body Weight 73.18 kg BSA Admission 1.94 Body Mass Index 24.14 kg/m2 Temperature Temporal Artery 36.2 DegC Peripheral Pulse Rate 77 bpm Respiratory Rate 19 br/min Systolic Blood Pressure Non-Invasive 144 mmHg HI Diastolic Blood Pressure Non-Invasive 90 mmHg HI Oxygen Saturation 100 % Status N/A Sensory Deficits None Infectious Disease Symptoms Patient states no symptoms Infectious Disease Recent Exposure No Alcohol and Drug Use No Employee of Institutional Living No Health Care Employee No History of Exposure to TB No History of Positive Chest X-Ray for TB No History of Positive TB Skin Test No Homeless No Known Immunosuppression No Recent Immigrant No Resident of Institutional Living No Bloody Sputum No Fatigue No Fever No Loss of Appetite No Night Sweats No Persistent Cough > 3 Weeks No Weight Loss No Barriers to Learning None evident Teaching Method Explanation Preferred Spoken Language Stateless Preferred Written Language Stateless Information Given by Patient Patient's Current Physicians Larry Casillas Discharge To, Anticipated Home with family care Prev Test Positive/Diagnosis w/COVID-19 No Current Quarantine/Isolated any Illness No Any Contact with Sick Animals/Birds No Traveled Anywhere in Last 30 Days No N/A Personal Devices, Patient Valuables None Admission Note-Nursing Procedure/Therapy Intake . Assessment and Plan [place] [employer] Anesthesiologists (ASA) physical status classification: Class III. Anesthetic Preoperative Plan Anesthetic technique: MAC. Informed consent: signed by patient. Digitally Signed by MELINA REARDON on 09/27/2023 10:38 AM [facility]04-22-2024 Note Date of Service 09/27/2023 Procedure Name Screening colonoscopy Referring Provider Laci Billingsley Consent Taken before procedure Indication Screening colonoscopy Location [facility] Pre-Procedure Exam Screening colonoscopy Procedural Sedation Anesthesia provided a MAC Technique Colonoscopy to the cecum Post-Procedure Exam Greening colonoscopy Findings No large polyps seen Complications None Total Time Approximately 20 minutes Assessment/Plan 1. Encounter for screening colonoscopy, Encounter for screening colonoscopy for jnm-gaqb-tlyf patient Orders: Lactated Ringers Infusion 1,000 mL, Start: 09/27/23 8:34:00 EDT, Rate: 50 mL/hr, 09/27/23 8:34:00 EDT Communication Order (scheduled) Communication Order (scheduled) Communication Order (scheduled) Discharge Sign Consent Follow Up/Recommendation Repeat colonoscopy in 10 years Digitally Signed by RONDA MCKINNON MD on 09/27/2023 10:37 AM [facility]04-22-2024 Anesthesiology Consult note Patient: LIZA BUSCH Age: 68 years Sex: Male : 1955 Associated Diagnoses: None Author: MELINA REARDON Assessment Postanesthesia assessment Vitals: Vital signs from flowsheet : Vital Signs 09/27/2023 10:30 EDT Heart Rate Monitored 72 bpm bpm Respiratory Rate - Anes 13 br/min br/min Systolic Blood Pressure Non-Invasive 113 mmHg mmHg Diastolic Blood Pressure Non-Invasive 75 mmHg mmHg 09/27/2023 10:25 EDT Heart Rate Monitored 73 bpm bpm Respiratory Rate - Anes 14 br/min br/min Systolic Blood Pressure Non-Invasive 130 mmHg mmHg Diastolic Blood Pressure Non-Invasive 90 mmHg mmHg 09/27/2023 10:20 EDT Heart Rate Monitored 70 bpm bpm Respiratory Rate - Anes 15 br/min br/min Systolic Blood Pressure Non-Invasive 151 mmHg mmHg Diastolic Blood Pressure Non-Invasive 89 mmHg mmHg 09/27/2023 10:18 EDT Systolic Blood Pressure Non-Invasive 145 mmHg mmHg Diastolic Blood Pressure Non-Invasive 88 mmHg mmHg 09/27/2023 8:50 EDT Temperature Temporal Artery 36.2 DegC Peripheral Pulse Rate 77 bpm Respiratory Rate 19 br/min Systolic Blood Pressure Non-Invasive 144 mmHg HI Diastolic Blood Pressure Non-Invasive 90 mmHg HI , Measurements from flowsheet . Mental status: alert & oriented x 4. Respiratory function: respirations are non-labored. Respiratory support: none. CV function: Normal rate. Cardiovascular support: none. Pain. Nausea status: see nursing documentation of medications. Postoperative hydration status: within normal limits. Digitally Signed by MELINA REARDON on 09/27/2023 10:35 AM [facility]04-22-2024 History and physical note Date of Service 09/27/2023 History and Physical Update I have examined the patient; reviewed the History and Physical and there are no changes to the History and Physical unless noted below. Digitally Signed by RONDA MCKINNON MD on 09/27/2023 10:20 AM [facility] No data available for this section [facility] Evaluation note* Diagnosis Onset Date Resolution Status Diabetes chronic Hypertension [facility] Work Phone: Evaluation note* Diagnosis Onset Date Resolution Status Erectile dysfunction acute Diabetes chronic Hypertension chronic Erectile dysfunction acute Diabetes chronic Hypertension [facility] Work Phone: Reason for referral (narrative)No reason for [facility] Work Phone: Chief Complaint and Reason for Visit Chief Complaint 6 M FU Reason for Visit Diabetes Hypertension Chief Complaint 3 M FU 3 M FU Reason for Visit Erectile dysfunction Diabetes Hypertension Erectile dysfunction Diabetes Hypertension Chief Complaint Admit Date 3 M FU August 22, 2024 9:1 8am CONCERN FOR INFECTION ON R LEG October 19, 2024 10:11am Reason for Visit Admit Date Erectile dysfunction August 22, 2024 9: 18am Diabetes August 22, 2024 9:1 8am Hypertension August 22, 2024 9:1 8am Chief Complaint Admit Date 3 M FU August 22, 2024 9:1 8am CONCERN FOR INFECTION ON R LEG October 19, 2024 10:11am 3 M FU November 21, 2024 9:44 am Reason for Visit Admit Date Diabetes August 22, 2024 9:1 8am Erectile dysfunction August 22, 2024 9: 18am Hypertension August 22, 2024 9:1 8am Abrasion of skin of left lower leg October 052024 10:11am Diabetes November 21, 2024 9:44 am Erectile dysfunction November 21, 2024 9:4 4am Hypertension November 21, 2024 9:44 am Chief Complaint Admit Date CONCERN FOR INFECTION ON R LEG October 19, 2024 10:11am 3 M FU November 21, 2024 9:44 am Passed out 01/15, Diabetic, fell on hip ( cont.) January 18, 2025 12:29pm Reason for Visit Admit Date Abrasion of skin of left lower leg October 052024 10:11am Diabetes November 21, 2024 9:44 am Erectile dysfunction November 21, 2024 9:4 4am Hypertension November 21, 2024 9:44 am Exertional dyspnea January 18, 2025 12 :29pm Hypertension January 18, 2025 12 :29pm Chief Complaint Admit Date CONCERN FOR INFECTION ON R LEG October 19, 2024 10:11am 3 M FU November 21, 2024 9:44 am Passed out 01/15, Diabetic, fell on hip ( cont.) January 18, 2025 12:29pm INT LAB ORDERS January 18, 2025 1: 31pm DYSPNEA January 23, 2025 8: 41am Reason for Visit Admit Date Abrasion of skin of left lower leg October 052024 10:11am Diabetes November 21, 2024 9:44 am Erectile dysfunction November 21, 2024 9:4 4am Hypertension November 21, 2024 9:44 am Exertional dyspnea January 18, 2025 12 :29pm LOC (loss of consciousness) January 18, 2025 12:29pm Hypertension January 18, 2025 12 :29pm Summary Purpose Family History No Family History Records Found Advance Directives No Advanced Directives Records FoundNo Advanced Directives Records Found Additional Source Comments Goals (unrecognized section and content) Goals may be documented in a n alternate sectionGoals may be documented in an alternate section No data available for this sectionGoals may be documented in an alternate sectionGoals may be documented in an alternate sectionGoals may be documented in an alternate sectionGoals may be documented in an alternate sectionGoals may be documented in an alternate section Care Teams (unrecognized sec tion and content) Team Status: Active Member Role Status Dates Dr. Laci Billingsley DO Primary Care Provider Active Team Status: Inactive Member Role Status Dates Dr. Laci Billingsley DO Primary Care Pr ovider, Attending Provider, Referring Provider Active Team Status: Inactive Member Role Status Dates Dr. Laci Billingsley DO Primary Care Provider Active Start: August 22, 2024 End: August 22, 2024 Dr. Laci Billingsley DO Attending Provider Active Start: August 22, 2024 End: August 22, 2024 Dr. Laci Billingsley DO Referring Provider Active Start: August 22, 2024 End: August 22, 2024 Team Status: Inactive Member Role Status Dates Dr. Laci Billingsley DO Primary Care Provider Active Start: October 19, 2024 End: October 19, 2024 Dr. Laci Billingsley DO Referring Provider Active Start: October 19, 2024 End: October 19, 2024 Reuben NAILS, PA Attending Provider Active Sta rt: October 19, 2024 End: October 19, 2024 Team Status: Inactive Member Role Status Dates Dr. Laci Billingsley DO Primary Care Provider Active Start: November 21, 2024 End: November 21, 2024 Dr. Laci Billingsley DO Attending Provider Active Start: November 21, 2024 End: November 21, 2024 Dr. Laci Billingsley DO Referring Provider Active Start: November 21, 2024 End: November 21, 2024 Team Status: Active Member Role/Relationship Status Dates Dr. Laci Billingsley DO Primary Care Provider Active Team Status: Inactive Member Role/Relationship Status Dates Dr. Laci Billingsley DO Primary Care Provider Active Start: October 19, 2024 End: October 19, 2024 Dr. Laci Billingsley DO Referring Provider Active Start: October 19, 2024 End: October 19, 2024 JESU Lopez Attending Provider Active Sta rt: October 19, 2024 End: October 19, 2024 Team Status: Inactive Member Role/Relationship Status Dates Dr. Laci Billingsley DO Primary Care Provider Active Start: November 21, 2024 End: November 21, 2024 Dr. Laci Billingsley DO Attending Provider Active Start: November 21, 2024 End: November 21, 2024 Dr. Laci Billingsley DO Referring Provider Active Start: November 21, 2024 End: November 21, 2024 Team Status: Inactive Member Role/Relationship Status Dates Dr. Laci Billingsley DO Primary Care Provider Active Start: January 18, 2025 End: January 18, 2025 Dr. Laci Billingsley DO Referring Provider Active Start: January 18, 2025 End: January 18, 2025 JESU Munguia Attending Provider Active St art: January 18, 2025 End: January 18, 2025 Team Status: Inactive Member Role/Relationship Status Dates Dr. Laci Billingsley DO Primary Care Provider Active Start: January 18, 2025 End: January 18, 2025 JESU Munguia Attending Provider Active St art: January 18, 2025 End: January 18, 2025 JESU Munguia Referring Provider Active St art: January 18, 2025 End: January 18, 2025 Team Status: Active Member Role/Relationship Status Dates Dr. Laci R Brown , DO Primary Care Provider Active Start: January 23, 2025 JESU Munguia Attending Provider Active St art: January 23, 2025 JESU Munguia Referring Provider Active St art: January 23, 2025 Team Status: Inactive Member Role/Relationship Status Dates Dr. Laci Billingsley , DO Primary Care Provider Active Start: January 23, 2025 End: January 23, 2025 JESU Munguia Attending Provider Active St art: January 23, 2025 End: January 23, 2025 JESU Munguia Referring Provider Active St art: January 23, 2025 End: January 23, 2025 (unrecognized sect ion and content) No Status Records FoundNo Status Records Found INFORMATION SOURCE (unrecogn ized section and content) DATE CREATED AUTHOR 10/05/2023 [facility] ([place]) DATE CREATED AUTHOR AUTHOR'S ORGANIZ ATION 02/13/2025 [facility] FOR RECORDS PERTAINING TO PATIENTS WHO ARE OR HAVE BEEN ENROLLED IN A CHEMICAL DEPENDENCY/SUBSTANCEABUSE PROGRAM, SOME INFORMATION MAY BE OMITTED. This clinical summary was aggregated from multiple sources. Caution should be exercised in using it in the provision of clinical care. This summary normalizes information from multiple sources, and as a consequence, information in this document may materially change the coding, format and clinical context of patient data. In addition, data may be omitted in some cases. CLINICAL DECISIONS SHOULD BE BASED ON THE PRIMARY CLINICAL RECORDS. [facility] [employer] [facility]. provides no warranty or guarantee of the accuracy or completeness of information in this document.
--- NOTE | 2025-02-14 13:05 | STRESSREP ---
Stress Test Report Date: 02/14/2025 Procedure: Exercise tolerance test/imaging study Indications: Dyspnea on exertion Consent: Per the patient Procedure: The patient exercised on a Cameron protocol for 6 minutes and 38 seconds achieving a peak heart rate of 164 bpm (109% predicted maximal heart rate) with a peak blood pressure 170/72 mmHg and a peak MET capacity of 8.9 METs. The baseline ECG demonstrated sinus rhythm. The peak exercise ECG showed sinus tachycardia with no ischemic changes. There were no cardiac dysrhythmias pretest, during exercise, or recovery. The functional capacity was considered excellent for age. There was no complaint of chest discomfort during exercise or recovery. The examination was discontinued secondary to target heart rate being achieved. The patient was injected with 11.4 mCi of technetium 99m Cardiolite and subsequently rest SPECT Cardiolite nuclear imaging was obtained in the horizontal long, vertical long, and short axis views. Post-exercise, the patient was injected with 34.1 mCi of technetium 99m Cardiolite and subsequently stress SPECT Cardiolite nuclear imaging was obtained in the horizontal long, vertical long, and short axis views. A gated Cardiolite study at peak stress was obtained. Rest and stress SPECT Cardiolite nuclear imaging status post realignment, normalization, and attenuation correction, demonstrates the appearance of relative uniform tracer uptake and myocardial perfusion appearing within normal limits. There is end systolic thickening and brightening. The gated Cardiolite study demonstrates myocardial thickening and inward wall motion. The reported LVEF is 80%. Impression: 1. Technically adequate (percent predicted maximal heart rate greater than 85%) exercise tolerance test 2. Peak exercise ECG with no ischemic changes. No angina reported at 109% of the maximal predicted heart rate. Excellent functional capacity for age. 3. There were no cardiac dysrhythmias pretest, during exercise, or recovery 4. Rest and stress SPECT Cardiolite nuclear imaging demonstrate relative uniform tracer uptake and myocardial perfusion appearing within normal limits. 5. The gated Cardiolite study reports an LVEF of 80%. This note was generated with [employer] software. It may contain incorrect words, spelling, and punctuation that were not noted in checking the note before signing.
== END | disposition home or self-care (01) ==
PROVIDERS: PCP Family Medicine; Referring Provider Physician Assistant; Visit Provider Physician Assistant
DX: R06.09 Other forms of dyspnea (principal); R68.89 Other general symptoms and signs
CPT/HCPCS: 78452; 93017; A9500

== ENCOUNTER 2025-02-16 16:54 | Emergency (ER) | payer MEDICARE, SELFPAY ==
[2025-02-16 16:55] VITALS: BP 139/85; PULSE 107; RESP 18; TEMP 36.1; O2SAT 97; BMI 23.8
--- NOTE | 2025-02-16 17:00 | CT_ITS ---
PROCEDURE: CT BRAIN/HEAD WITHOUT CONTRAST 02/16/2025 REASON FOR EXAM: TRAUMA, BLEEDING TECHNIQUE: Procedure Code: CTBR Modality: CT Procedure: BRAIN/HEAD WITHOUT CONTRAST Coronal and Sagittal reconstruction series were provided. One or more dose reduction techniques were used (e.g., Automated exposure control, adjustment of the mA and/or kV according to patient size, use of iterative reconstruction technique. RADIATION DOSE SUMMARY: CTDlvol: 44.99 mGy DLP: 846.73 mGycm COMPARISON: None. FINDINGS: No acute intracranial hemorrhage, extra-axial collection, mass effect or evidence of acute infarct. Ventricles and subarachnoid spaces are normal in size. Orbital contents are unremarkable. Mild posterior left parietal scalp contusion/laceration. Intact skull base and calvarium. Well-aerated paranasal sinuses and mastoid air cells. CT/Brain/Head without Contrast IMPRESSION: No acute intracranial abnormality. Mild posterior left parietal scalp contusion/laceration. Reading Location: [facility]
[2025-02-16] MEDS: Lidocaine 1% (20 ml mdv) 20 ML Vial INFILT (18:54)
[2025-02-16 18:55] VITALS: BP 162/92; PULSE 90; RESP 18
--- NOTE | 2025-02-16 19:28 | EDS_ITS ---
HPI History of Present Illness Chief Complaint: Head Injury Detail of Chief Complaint: Head injury due to blunt trauma Informant: patient Onset/Context/Timing Onset: Today and Hours (Approximately 1330) Mechanism/Context: Blunt Injury Quality of Pain: - (Dull ache) Location: Occiput Current Severity: Gone Maximum Severity: Mild Worsened by: Initial blunt trauma Relieved by: Not applicable Associated Symptoms Associated Symptoms: Positive for - (Days to per triage nurse, verbal order for CT of the head); Negative for Parasthesias, Weakness, Loss of function, Inability to ambulate, Loss of consciousness or Amnesia Narrative Narrative: Patient is a 69-year-old male. He was cutting a tree. Treated with 4-6 since trunk fell hitting on the head. He complains of mild head pain. He denies double vision blurred vision loss of vision. Nuys bloody nose. Denies his teeth not lining up. He denies neck pain. He denies paresthesia, anesthesia or motor weakness of his upper or lower extremity. He is not on anticoagulant. He is on aspirin a day. He also has history of type 2 diabetes and hypercholesterolemia. Tetanus Immunization: Unknown Prior similar symptoms: No Recent Illness/Hospitalization: No [facility] Medical History (Updated 02/16/25 @ 19:[address] Harvey Juarez MD) Hypertension Diabetes Arthritis Home Medications ?Medication ?Instructions ?Recorded ?Last Taken ?Type blood-glucose meter (Accu-Chek #1 ea 07/13/23 Unknown Rx Guide Glucose Meter) lancets (Accu-Chek Softclix #100 ea 07/13/23 Unknown R x Lancets) atorvastatin 10 mg tablet (Lipitor) 10 mg PO DAILY #90 tabs 02/22/24 Unknown Rx metformin 500 mg tablet 500 mg PO .COMPLEX #270 tabs 11/21/24 Unknown Rx osnfahah-bxagpjlb-qsgbd acid 400 tab PO QDAY 11/21/24 Unknown History mcg-vit K 20 mcg-lycop 300 mcg tablet (One-A-Day Men's Multivitamin) aspirin 81 mg tablet 81 mg PO QDAY #100 tabs 01/05 09/29 Unknown Rx blood sugar diagnostic (Accu-Chek #100 ea 01/18/25 Unk nown Rx Guide test strips) Allergy/AdvReac Type Severity Reaction Status Date / Time No Known Allergies Allergy Verified 02/16/25 16:55 Family History Mother Hypertension Social History Smoking Status: Former smoker alcohol intake: current alcohol intake frequency: a few times a month Alcohol type: beer substance use type: does not use what type of physical activity do you participate in: bicycling ROS ROS ED Eyes Eyes: Denies blurry vision or change in vision ENT ENT ED: Reports other Details: No epistaxis. ; Denies ear pain, rhinorrhea or sore throat Cardiovascular Cardiovascular: Reports chest pain and palpitations Respiratory/Chest Respiratory/Chest: Denies cough, dyspnea or dyspnea on exertion Gastrointestinal Gastrointestinal: Denies nausea or vomiting Musculoskeletal Musculoskeletal: Denies back pain or neck pain Integumentary Reports other Details: Laceration occiput 3.8 cm Neurologic Neurologic: Reports headache(s); Denies paresthesias or weakness Endocrine Endocrinology: Denies cold intolerance or heat intolerance Hematologic/Lymphatic Hematologic/Lymphatic: Denies easy bleeding or easy bruising EXAM Physical Exam Const Vital Signs: 02/16/25 16:55 02/16/25 18:03 02/16/25 18:55 Temperature 97 F L Temperature Source Temporal Pulse Rate 107 H 90 Respiratory Rate 18 18 Respiratory Effort Normal Non-Labored Respiratory Depth Normal Respiratory Pattern Normal Blood Pressure 139/85 H 162/92 H Blood Pressure Mean 103 115 Pulse Ox 97 Oxygen Delivery Method Room Air Room Air Room Air Positive well nourished and well developed General Appearance ED: well developed and NAD HEENT HEENT Narrative: There is no palpable pression. Is no clinical signs of basilar skull fracture. There is no septal deviation hematoma. There is no Insa malocclusion or trismus. trauma and tenderness Eyes PERRL and EOMs intact bilaterally General Eye ED: Yes other Other Details: There is no nystagmus. There is no subconjunctival hemorrhage. Neck full ROM Chest Wall inspection of chest normal and palpation of chest normal Resp normal respiratory effort and clear to auscultation bilaterally Cardio regular rhythm, S1 normal heart sound, S2 normal heart sound and no murmurs Back/Spine normal to inspection and no thoracic nor lumbar tenderness Extremity normal to inspection and full ROM General Extremety ED: Negative for deformity General Extremity: Negative for deformity Neuro oriented x3, CN's II-XII intact bilaterally, moves all extremities, no focal motor deficits, no sensory deficits noted and gait normal Bandana Coma Scale: document GCS findings Spontaneous Obeys Commands Oriented 15 Sensorium / Orientation: alert Plantar Reflex: Downgoing: bilateral Psych mental status grossly normal and thought process normal Skin Skin Narrative: Scalp laceration 3.8 cm. PROC Procedures Other Procedures Procedure(s): Patient was anesthetized by local infiltration using 1% lidocaine without epinephrine. Wound was irrigated with 125 cc normal saline. There was small amounts of bark that were removed. 5 tyler placed with good cosmesis and hemostasis. MDM MDM MDM Narrative Medical decision making narrative: In light of the fact the patient 69 years old on aspirin blunt head trauma CT of the head was obtained to rule out epidural hematoma, subdural hematoma, traumatic subarachnoid hemorrhage or intraparenchymal contusion also to rule out fracture. Patient's laceration will require repair. Please see procedure note. Radiography Diagnostic Testing: Clinical Impression(s) from Imaging Studies Brain CT 02/16/25 17:00 IMPRESSION: No acute intracranial abnormality. Mild posterior left parietal scalp contusion/laceration. Reading Location: [facility] Reviewed the CT and there is evidence of a laceration with no evidence of fracture, blood or fluid in the sinuses or intracranial bleed. Discharge Plan Triage Chief Complaint: Head Injury ED Provider: Harvey Juarez Dx/Rx/DC Orders Clinical Impression: CHI (closed head injury), Diabetes, Hypertension, Antiplatelet or antithrombotic long-term use, Laceration of occipital scalp, Foreign body (FB) in soft tissue Instructions: ED Head Injury (Adult), ED Laceration Scalp Stitches or Tyler Prescriptions: No Action atorvastatin [Lipitor] 10 mg tablet 10 mg PO DAILY Qty: 90 3RF One-A-Day Men's Multivitamin 400-20-300 mcg tablet PO QDAY metformin 500 mg tablet 500 mg PO .COMPLEX Qty: 270 1RF Rx Instructions: 500 mg orally; two in the morning one at night (DME) Accu-Chek Guide test strips Strip See Rx Instructions .Route Qty: 100 3RF Rx Instructions: As directed to check BG 1-2 times daily for DMII aspirin 81 mg tablet 81 mg PO QDAY Qty: 100 0RF (DME) blood-glucose meter [Accu-Chek Guide Glucose Meter] Misc See Rx Instructions .Route Qty: 1 0RF Rx Instructions: As directed to check BG 1-2 times daily for DMII (DME) lancets [Accu-Chek Softclix Lancets] Misc See Rx Instructions .Route Qty: 100 3RF Rx Instructions: As directed to check BG 1-2 times daily for DMII Primary Care Provider: Sean Billingsley Referrals: Sean Billingsley, DO [Primary Care Provider] - 10 Day for suture removal Print Language: Sammarinese Disposition Disposition: Home, Self Care
[2025-02-16 19:51] VITALS: BP 148/93; PULSE 80; RESP 18; TEMP 36.1; O2SAT 97
== END 2025-02-16 19:53 | disposition home or self-care (01) ==
PROVIDERS: Emergency Provider Emergency Medicine; PCP Family Medicine; Visit Provider Emergency Medicine
DX: S01.02XA Laceration with foreign body of scalp, initial encounter (principal); E11.9 Type 2 diabetes mellitus without complications; I10 Essential (primary) hypertension; Z79.82 Long term (current) use of aspirin; Z87.891 Personal history of nicotine dependence; E78.00 Pure hypercholesterolemia, unspecified; W20.8XXA Other cause of strike by thrown, projected or falling object, initial encounter; Y93.89 Activity, other specified; Z79.899 Other long term (current) drug therapy; Z79.84 Long term (current) use of oral hypoglycemic drugs; Z79.02 Long term (current) use of antithrombotics/antiplatelets; S09.90XA Unspecified injury of head, initial encounter
CPT/HCPCS: 12002; 70450; 90715; 99283